=== PATIENT | male | born 1945 | race African-American/Black ===

== ENCOUNTER 2020-09-18 14:39 | Inpatient (IN) | payer MEDICARE, MEDICAID ==
[~2020-09-18] VITALS: Ht 182.9 cm; Wt 88.5 kg
--- NOTE | 2020-09-18 15:31 | EKG ---
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
--- NOTE | 2020-09-18 16:03 | RAD ---
EXAM: XR CHEST 1V 09/18/2020 2:42 PM CLINICAL INDICATION: Shortness of breath COMPARISON: 01/23/2020 TECHNIQUE: AP upright view the chest FINDINGS: The heart and mediastinum are normal. Lungs are hypoexpanded. Unchanged mild left basilar opacities and possible small left pleural effusion. Pulmonary vasculature remains indistinct. CUSTOMER ACCOUNT TECHNICIAN cath eter shunt tubing is seen in the right hemithorax. No acute osseous abnormality. IMPRESSION: Unchanged appearance of the chest with mild pulmonary vascular congestion and mild left b asilar opacities versus small pleural effusion. Electronically signed by: Kendra Vela MD (09/18/2020 4:00 PM) [id number]
[2020-09-18 16:05] LABS: CALCIUM 9.6 mg/dL (8.5-10.1); CREATININE 1.6 mg/dL (0.7-1.3); GFR 42.2; POTASSIUM 4.3 mmol/L (3.5-5.1)
[2020-09-18] MEDS ORDERED: DEXAMETHASONE SOD PHOS 10 MG/ML VIAL. ONE (16:09)
[2020-09-18 16:15] LABS: ALBUMIN 3.1 g/dL (3.4-5.0); ALBUMIN/GLOBULIN RATIO 0.6 (1.0-1.7); C REACTIVE PROTEIN 95.8 mg/L (0-3.3); TOTAL BILIRUBIN 0.4 mg/dL (0.2-1.0); TOTAL PROTEIN 8.3 g/dL (6.4-8.2)
[2020-09-18 16:20] LABS: BACTERIA,URINE MANY /HPF (0-FEW); BILIRUBIN,URINE NEG (NEG); CLARITY,URINE TURBID; COLOR,URINE YELLOW; GLUCOSE,URINE NEG (NEG); NITRITE,URINE NEG (NEG); RBC,URINE >40 /HPF (0-2); SQUAMOUS EPITHELIAL CELL,UR MOD /LPF; WBC,URINE >40 /HPF (0-4)
[2020-09-18 16:21] LABS: GRANULAR CASTS,URINE MOD /HPF
[2020-09-18 16:25] LABS: BASO # 0.1 x10^3/uL (0.0-0.2); BASO % 1 % (0-3); EOS % 0 % (0-3); HEMATOCRIT 44.7 % (39.0-53.0); HEMOGLOBIN 14.1 g/dL (13.0-17.5); LYMPH # 2.7 x10^3/uL (1.0-4.8); LYMPH % 30 % (24-48); MEAN CORPUSCULAR HEMOGLOBIN 26 pg (25-35); MEAN CORPUSCULAR HGB CONC 31 g/dL (31-37); MEAN CORPUSCULAR VOLUME 82 fL (79-100); MONO # 0.6 x10^3/uL (0.0-1.1); MONO % 6 % (0-9); NEUT # 5.8 x10^3uL (1.8-7.7); NEUT % 63 % (31-73); PLATELET COUNT 212 x10^3/uL (140-400); RED BLOOD COUNT 5.48 x10^6/uL (4.30-5.70); RED CELL DISTRIBUTION WIDTH 18.5 % (11.5-14.5); WHITE BLOOD COUNT 9.2 x10^3/uL (4.0-11.0)
[2020-09-18] MEDS ORDERED: IV NORMAL SALINE 50ML 50 ML ONE (16:28)
[2020-09-18] MEDS ORDERED: cefTRIAXone SODIUM 1 GM VIAL ONE (16:28)
[2020-09-18] MEDS ORDERED: DEXAMETHASONE SOD PHOS 10 MG/ML VIAL. IV ONE (16:30)
[2020-09-18] MEDS ORDERED: IV NORMAL SALINE 1,000ML 1,000 ML IV ONE (16:30)
--- NOTE | 2020-09-18 16:38 | PHYS DOC ---
Past History Past Medical History: Anemia, Anxiety, Dementia, Depression, Diabetes, Hypertension, Hypothyroid, Pneumonia, Other Additional Past Medical Histor: BENIGN NEOPLASM OF BRAIN; COVID POSITIVE 09-09-20 Past Surgical History: Other Additional Past Surgical Histo: UNKNOWN Alcohol Use: None Additional Alcohol Information: UNKNOWN HISTORY Adult General Chief Complaint Chief Complaint: SHORTNESS OF BREATH HPI HPI Patient is 75-year-old male who presents to the emergency room with reported increased lethargy and work of breathing. Patient is unable to provide any kind of history at this time. He does reportedly have a history of dementia which is likely the cause of this. Patient is alert and oriented. He tested positive for coronavirus 8 days ago. Review of Systems Review of Systems Unable to obtain due to dementia Current Medications Current Medications Current Medications Medications (Trade) Dose Ordered Sig/Danis Start Time Stop Time Status Last Admin Dose Admin Ceftriaxone Sodium 1 gm/ Sodium Chloride 50 ml @ 100 mls/hr 1X ONCE 09/18/20 16:30 09/18/20 16:59 Ceftriaxone Sodium (Rocephin) 1 gm STK-MED ONCE 09/18/20 16:28 09/18/20 16:28 DC Dexamethasone Sodium Phosphate (Decadron) 10 mg 1X ONCE 09/18/20 16:30 09/18/20 16:31 09/18/20 16:20 10 MG Sodium Chloride 50 ml @ As Directed STK-MED ONCE 09/18/20 16:28 09/18/20 16:28 DC Allergies Allergies Allergies Coded Allergies Type Severity Reaction Last Updated Verified No Known Drug Allergies 09/18/20 No Physical Exam Physical Exam General: Awake, alert, NAD. Well Nourished, well hydrated. Cooperative HEENT: Atraumatic, EOMI, PERRL, airway patent, moist oral mucosa Neck: Supple, trachea midline Respiratory: Normal effort, no tachypnea, decreased breath sounds bilaterally CV: RRR, no murmur, cap refill <2 GI: Soft, nondistended, nontender, no masses MSK: No obvious deformities Skin: Warm, dry, intact Neuro: Nonverbal, sensory and motor grossly intact, no focal deficits Current Patient Data Vital Signs Vital Signs Date Time Temp Pulse Resp B/P (MAP) Pulse Ox O2 Delivery O2 Flow Rate FiO2 09/18/20 16:18 80 20 129/73 (91) 99 Nasal Cannula 3.0 09/18/20 14:52 99.1 Lab Results Laboratory Tests Test 09/18/20 15:20 09/18/20 15:30 White Blood Count 9.2 x10^3/uL (4.0-11.0) Red Blood Count 5.48 x10^6/uL (4.30-5.70) Hemoglobin 14.1 g/dL (13.0-17.5) Hematocrit 44.7 % (39.0-53.0) Mean Corpuscular Volume 82 fL (79-100) Mean Corpuscular Hemoglobin 26 pg (25-35) Mean Corpuscular Hemoglobin Concent 31 g/dL (31-37) Red Cell Distribution Width 18.5 % (11.5-14.5) H Platelet Count 212 x10^3/uL (140-400) Neutrophils (%) (Auto) 63 % (31-73) Lymphocytes (%) (Auto) 30 % (24-48) Monocytes (%) (Auto) 6 % (0-9) Eosinophils (%) (Auto) 0 % (0-3) Basophils (%) (Auto) 1 % (0-3) Neutrophils # (Auto) 5.8 x10^3uL (1.8-7.7) Lymphocytes # (Auto) 2.7 x10^3/uL (1.0-4.8) Monocytes # (Auto) 0.6 x10^3/uL (0.0-1.1) Eosinophils # (Auto) 0.0 x10^3/uL (0.0-0.7) Basophils # (Auto) 0.1 x10^3/uL (0.0-0.2) Sodium Level 149 mmol/L (136-145) H Potassium Level 4.3 mmol/L (3.5-5.1) Chloride Level 114 mmol/L (98-107) H Carbon Dioxide Level 25 mmol/L (21-32) Anion Gap 10 (6-14) Blood Urea Nitrogen 63 mg/dL (8-26) H Creatinine 1.6 mg/dL (0.7-1.3) H Estimated GFR (Cockcroft-Gault) 42.2 BUN/Creatinine Ratio 39 (6-20) H Glucose Level 159 mg/dL (70-99) H Calcium Level 9.6 mg/dL (8.5-10.1) Total Bilirubin 0.4 mg/dL (0.2-1.0) Aspartate Amino Transferase (AST) 38 U/L (15-37) H Alanine Aminotransferase (ALT) 52 U/L (16-63) Alkaline Phosphatase 106 U/L (46-116) Lactate Dehydrogenase 226 U/L (85-227) Creatine Kinase 49 U/L (39-308) Troponin I Quantitative < 0.017 ng/mL (0-0.055) C-Reactive Protein 95.8 mg/L (0-3.3) H TA-Syv-N-Type Natriuretic Peptide 294 pg/mL (0-449) Total Protein 8.3 g/dL (6.4-8.2) H Albumin 3.1 g/dL (3.4-5.0) L Albumin/Globulin Ratio 0.6 (1.0-1.7) L Urine Collection Type U cath Urine Color Yellow Urine Clarity Turbid Urine pH 5.5 Urine Specific Gray 1.025 Urine Protein >100 mg/dl (NEG-TRACE) Urine Glucose (UA) Neg mg/dL (NEG) Urine Ketones (Stick) Trace mg/dL (NEG) Urine Blood Large (NEG) Urine Nitrite Neg (NEG) Urine Bilirubin Neg (NEG) Urine Urobilinogen Dipstick 1.0 mg/dL (0.2 mg/dL) Urine Leukocyte Esterase Trace (NEG) Urine RBC >40 /HPF (0-2) Urine WBC >40 /HPF (0-4) Urine Squamous Epithelial Cells Mod /LPF Urine Transitional Epithelial Cells Many /LPF Urine Renal Epithelial Cells Mod /LPF Urine Bacteria Many /HPF (0-FEW) Urine Granular Casts Mod /HPF Urine Mucus Slight /LPF EKG EKG [] Radiology/Procedures Radiology/Procedures [] Heart Score Risk Factors: Risk Factors: DM, Current or recent (<one month) smoker, HTN, HLP, family history of CAD, obesity. Risk Scores: Risk Factors: DM, Current or recent (<one month) smoker, HTN, HLP, family history of CAD, obesity. Course & Med Decision Making Course & Med Decision Making Pertinent Labs and Imaging studies reviewed. (See chart for details) Patient is 75-year-old male who presents to the emergency room with known schultz virus 19. He reportedly is here in the emergency room because he had decreased breath sounds. Patient is requiring 2 L of oxygen for minimal relief of shortness of breath. He is not in respiratory distress. He is unable to provide us any kind of history. Is unclear what his baseline is. He does reportedly have severe dementia. Work-up was ordered to evaluate for endorgan damage. Patient does appear to be significantly dehydrated here in the emergency room and IV fluids will be started. Patient discussed with Dr Nelson who will assume care. Dragon Disclaimer Dragon Disclaimer This electronic medical record was generated, in whole or in part, using a voice recognition dictation system. Departure Departure: Impression: Primary Impression: COVID-19 Additional Impressions: Dehydration Hypernatremia Disposition: ADMITTED INPT THIS HOSP Condition: STABLE Referrals: ELI LEIVA MD (PCP) Problem Qualifiers NAOMI FERMIN MD Sep 18, 2020 16:38
--- NOTE | 2020-09-18 19:30 | NUR ---
Pt admitted to 123 via EMS accompanied by ER staff. Pt was transferred from [facility] to bed w/ assistance of staff. Pt was unable to verbalize past medical history. Pt responds to name by opening eyes. Pt answers questions w/ shaking head yes or no only. Bed alarm placed will continue to monitor.
[2020-09-18 19:52] VITALS: BP 127/77
[2020-09-18 22:59] VITALS: BP 125/76
[2020-09-19] MEDS ORDERED: POLY17PO5 PO (00:04)
[2020-09-19] MEDS ORDERED: FERR325T14 PO (00:04)
[2020-09-19] MEDS ORDERED: MULT-505 PO (00:04)
[2020-09-19] MEDS ORDERED: ASPI325T8 PO (00:04)
[2020-09-19] MEDS ORDERED: METF500T16 PO (00:04)
[2020-09-19] MEDS ORDERED: MAGN400O7 PO (00:04)
[2020-09-19] MEDS ORDERED: ONDA4TAB7 PO (00:04)
[2020-09-19] MEDS ORDERED: LEVO88TA4 PO (00:04)
[2020-09-19] MEDS ORDERED: ZINC220T3 PO (00:04)
[2020-09-19] MEDS ORDERED: ASCO500C PO (00:04)
[2020-09-19] MEDS ORDERED: BUSP5TAB PO (00:04)
[2020-09-19] MEDS ORDERED: CHOL500021 PO (00:04)
[2020-09-19] MEDS ORDERED: CYAN50008 PO (00:04)
[2020-09-19] MEDS ORDERED: ACET325T21 PO (00:04)
[2020-09-19] MEDS ORDERED: SERT50TA PO (00:04)
[2020-09-19] MEDS ORDERED: LACT1CAP6 PO (00:04)
[2020-09-19] MEDS ORDERED: AMLO-186 PO (00:04)
[2020-09-19] MEDS ORDERED: METF10007 PO (00:04)
[2020-09-19] MEDS ORDERED: VITA1TAB19 PO (00:04)
[2020-09-19] MEDS: IV NORMAL SALINE 1,000ML 1,000 ML IV SCH ×3 (00:21→13:30)
[2020-09-19 06:13] VITALS: BP 131/80
[2020-09-19 10:14] VITALS: BP 138/74
[2020-09-19 14:52] VITALS: BP 124/72
[2020-09-19] MEDS ORDERED: MAGNESIUM HYDROXIDE 2,400 MG/30 ML ORAL.SUSP. PO PRN (15:30)
[2020-09-19] MEDS ORDERED: ACETAMINOPHEN 325 MG TABLET PO PRN (15:30)
[2020-09-19] MEDS: IV DEXTROSE 5% 1,000 ML IV SCH (15:30)
[2020-09-19] MEDS ORDERED: DEXTROSE 50% 25 GM / 50ML DISP.SYRIN. IV PRN (15:30)
[2020-09-19] MEDS ORDERED: ONDANSETRON ODT 4 MG TAB.RAPDIS PO PRN (16:00)
[2020-09-19 16:15] LABS: CALCIUM 9.3 mg/dL (8.5-10.1); CREATININE 1.7 mg/dL (0.7-1.3); GFR 47.7; POTASSIUM 4.6 mmol/L (3.5-5.1)
[2020-09-19 16:20] LABS: ALBUMIN 2.8 g/dL (3.4-5.0); ALBUMIN/GLOBULIN RATIO 0.6 (1.0-1.7); TOTAL BILIRUBIN 0.3 mg/dL (0.2-1.0); TOTAL PROTEIN 7.5 g/dL (6.4-8.2)
[2020-09-19] MEDS: DEXAMETHASONE SOD PHOS 4 MG/ML VIAL. IVP SCH (16:24)
[2020-09-19] MEDS: INSULIN LISPRO 300 UNITS/3 ML VIAL. SQ SCH (16:38)
--- NOTE | 2020-09-19 16:47 | HP ---
ADMIT DATE: 09/18/2020 HISTORY OF PRESENT ILLNESS: The patient is a 75-year-old -[place] male patient, a resident at [facility], who was brought to the Emergency Room with complaint o4f shortness of breath. He apparently was increasingly lethargic and short of breath. The patient himself is unable to provide any history. He does reportedly have a history of dementia. By the time he arrived to the Emergency Room, he was awake, alert. He apparently tested positive for coronavirus 8 days prior to admission. He was extensively investigated in the Emergency Room including lab work and imaging studies. His chest x-ray showed that the heart and mediastinum are normal. Lungs are hyperexpanded. Unchanged mild left basilar opacities and possible small left pleural effusion; however, pulmonary vasculature remains interesting. He has a ventriculoperitoneal shunt tubing is seen in the right hemithorax. No acute osseous abnormality. His CBC showed a normal white cell count, hemoglobin, hematocrit and platelets. His chemistry however showed hypernatremia and dehydration. His D-dimer was slightly elevated at 0.88. Urinalysis showed the urine was yellow, turbid with a pH of 5.5, specific gravity of 1.025. There is large amount of protein, large amount of blood, trace of leukocyte esterase, more than 40 wbc's, more than 40 rbc's, and many bacteria. The patient was admitted with COVID-19, dehydration, hypernatremia. PAST MEDICAL HISTORY: Significant for benign neoplasm of the brain, major depressive disorder, dementia without behavioral disturbances, has conjunctivitis, hypothyroidism, hypertension, generalized muscle weakness. He is also known to have anxiety disorder, anemia, type 2 diabetes mellitus and was diagnosed with COVID-19 about 8 days prior to admission. PAST SURGICAL HISTORY: Unremarkable and unobtainable, the patient is very demented. FAMILY HISTORY: Unobtainable. SOCIAL HISTORY: He is a resident at [facility]. He apparently does not smoke, drink alcohol or use any recreational drugs. ALLERGIES: He has no known drug allergies. MEDICATIONS: He is currently on following medications: He is on ferrous sulfate 325 mg daily, amlodipine 5 mg once a day, aspirin 325 mg once a day, Tylenol 650 mg every 4 hours, sertraline 50 mg daily, buspirone 5 mg twice a day, zinc sulfate 220 mg daily, lactobacillus acidophilus 1 capsule daily, milk of magnesia 30 mL p.o. daily p.r.n. for constipation, polyethylene glycol 17 grams daily, ondansetron 4 mg every 6 hours, metformin 1000 mg daily with supper metformin ____ tablet daily. He is on levothyroxine 88 mcg, cyanocobalamin 5000 mcg once a day, vitamin B complex 1 tablet once a day, ascorbic acid 500 mg once a day, cholecalciferol 50,000 units once a week, and multivitamin 1 tablet once a day. REVIEW OF SYSTEMS: Unobtainable. PHYSICAL EXAMINATION: GENERAL: On arrival to the Emergency Room, the patient looked well and was clearly in no apparent respiratory distress. No pallor, jaundice, cyanosis or thyromegaly. No jugular venous distention. No lower limb edema. VITAL SIGNS: His heart rate was 77, blood pressure was 137/74, temperature was 99.1, respiratory rate 20, and oxygen saturation was 100% on 4 liters of oxygen. HEAD, EYES, EARS, NOSE AND THROAT: Showed normocephalic, atraumatic. NECK: Supple. HEART: Showed normal first and second heart sounds. No gallop or murmur. CHEST: Clear to auscultation. No crepitation or rhonchi. ABDOMEN: Slightly distended, soft, nontender. No guarding or rigidity. No organomegaly. All hernial orifices intact. Bowel sounds normal. NEUROLOGIC: He is demented, but without any obvious lateralizing sign. He apparently is mostly wheelchair bound. LABORATORY DATA: His lab work on arrival showed a white cell count of 9200, hemoglobin was 14, hematocrit 44, MCV 82 and platelet count of 212,000 with normal manual differential. His chemistry showed a serum sodium 149, potassium 4.3, chloride 114, bicarbonate 25, anion gap of 10, BUN 63, creatinine 1.6. Estimated GFR was 42 mL per minute. His glucose 159, calcium was 9.6. Total bilirubin, AST, ALT, alkaline phosphatase were normal. Lactate dehydrogenase was 226. CK was only 49. C-reactive protein was high at 95.8. Beta natriuretic peptide was 294. Total protein was 8.3, albumin was 3.1. His D-dimer was 0.88. His urinalysis showed the urine was yellow, turbid with a pH of 5.5, specific gravity of 1.025 with large amount of protein. The urine was negative for glucose, trace of ketones, large amount of blood, negative for nitrite, trace amount of leukocyte esterase. There is more than 40 wbc's, more than 40 rbc's, many bacteria. ASSESSMENT AND PLAN: In summary, this is a 75-year-old -[place] male patient, a resident at [facility], who was admitted with altered mental status and worsening shortness of breath. He was found to be dehydrated. He also is positive for COVID-19 about 8 days prior to admission. He has marked hypernatremia, dehydration. He has multiple other medical problems including depression, anxiety, anemia, type 2 diabetes, hypertension, hypothyroidism. The patient was admitted and was started on ceftriaxone for possible urinary tract infection and started also on dexamethasone. We will resume all his medication and monitor his lab work and decide the further management accordingly. EAN COTE MD DR: BÁRBARA/jt JOB#: [id number] / [id number]
--- NOTE | 2020-09-19 18:06 | NUR ---
PATIENT WAS CALM MOST OF THE SHIFT, A/O X 1, DENIED ANY PAIN, DENIED N/V, STATED HE IS THIRSTY, THIS RN LET THE PATIENT HAVE NECTAR THICK JUICE AND PUDDING, PATIENT WAS ABLE TO SWALLOW WITHOUT DIFFICULTIES. PATIENT HAS MISSING TEETH , NO DENTURES PRESENT IN A ROOM WITH A PATIENT.
[2020-09-19 19:50] VITALS: BP 141/73
[2020-09-19] MEDS: LACTOBACILLUS RHAMNOSUS GG 1 CAPSULE. PO SCH (20:27)
[2020-09-19] MEDS: busPIRone 5 MG TABLET. PO SCH (20:27)
--- NOTE | 2020-09-19 20:43 | PN ---
DATE: 09/19/2020 SUBJECTIVE: The patient is resting, slightly propped up in bed, in no apparent distress, awake, alert, responds appropriately. The nursing staff stated that he was very lethargic this morning, but was more awake this afternoon, he is maintaining his oxygen saturation at 95% on 2 liters of oxygen. OBJECTIVE: GENERAL: When I examined him this afternoon, he looked well and was clearly in no apparent respiratory distress. No pallor, jaundice, cyanosis or thyromegaly. No jugular venous distention. No limb edema. VITAL SIGNS: His heart rate was 80, blood pressure was 138/84, temperature was 99.1, respiratory rate was 22 and oxygen saturation was 98% on 2 liters of oxygen. The rest of clinical exam is stable. HEENT: Normocephalic, atraumatic. NECK: Supple. HEART: Showed normal first and second heart sounds. No gallop, rub or murmur. CHEST: Clear to auscultation. No crepitation or rhonchi. ABDOMEN: Soft, nontender. NEUROLOGIC: He is definitely more awake, alert, opens eyes, tracks and responds appropriately. All cranial nerves intact. EXTREMITIES: He moves his upper extremities to much good extent than lower extremities, apparently he is mostly bedbound. His intake and output are incompletely recorded. LABORATORY DATA: Still pending at the time of this dictation. ASSESSMENT: This is a 75-year-old male patient who was admitted with worsening lethargy. He is more awake this afternoon, his oxygen saturation is 95% on 2 liters of oxygen. He is dehydrated. He has acute kidney injury and hypernatremia. He has multiple other medical problems including hypertension, hypothyroidism, type 2 diabetes, depression. PLAN: My plan is to discontinue IV normal saline. I held his metformin, start him on D5W IV at 100 mL per hour. We will continue with all his medication except metformin. We will repeat all his lab work again tomorrow. EAN COTE MD DR: BÁRBARA/jt JOB#: [id number] / [id number]
[2020-09-19 23:21] VITALS: BP 145/72
[2020-09-20] MEDS: IV DEXTROSE 5% 1,000 ML IV SCH ×3 (01:30→20:58)
[2020-09-20 05:49] LABS: ALBUMIN 2.7 g/dL (3.4-5.0); ALBUMIN/GLOBULIN RATIO 0.6 (1.0-1.7); CREATININE 1.6 mg/dL (0.7-1.3); GFR 51.1; TOTAL BILIRUBIN 0.2 mg/dL (0.2-1.0); TOTAL PROTEIN 7.4 g/dL (6.4-8.2)
[2020-09-20 05:55] LABS: HEMATOCRIT 39.7 % (39.0-53.0); HEMOGLOBIN 12.3 g/dL (13.0-17.5); RED BLOOD COUNT 4.8 x10^6/uL (4.30-5.70); RED CELL DISTRIBUTION WIDTH 18.4 % (11.5-14.5)
[2020-09-20 06:01] VITALS: BP 141/71
[2020-09-20 07:12] LABS: POTASSIUM 4.4 mmol/L (3.5-5.1)
[2020-09-20] MEDS: ASPIRIN 325 MG TABLET PO SCH (08:47)
[2020-09-20] MEDS: busPIRone 5 MG TABLET. PO SCH ×2 (08:47→20:59)
[2020-09-20] MEDS: ZINC SULFATE 220 MG CAPSULE. PO SCH (08:47)
[2020-09-20] MEDS: SERTRALINE 50 MG TABLET. PO SCH (08:47)
[2020-09-20] MEDS: LACTOBACILLUS RHAMNOSUS GG 1 CAPSULE. PO SCH ×2 (08:47→20:59)
[2020-09-20] MEDS: MULTIVITAMIN with MINERAL TABLET. PO SCH (08:47)
[2020-09-20] MEDS: LEVOTHYROXINE 88 MCG TABLET PO SCH (08:47)
[2020-09-20] MEDS: FERROUS SULFATE 325 MG TABLET. PO SCH (08:47)
[2020-09-20] MEDS: ASCORBIC ACID 500 MG TABLET PO SCH (08:47)
[2020-09-20] MEDS: VITAMIN B COMPLEX CAPSULE. PO SCH (08:47)
[2020-09-20] MEDS: DEXAMETHASONE SOD PHOS 4 MG/ML VIAL. IVP SCH (08:48)
--- NOTE | 2020-09-20 08:53 | NUR ---
Wound/Ostomy Care Wound Type/Assessment: Wound consult for wound to coccyx. Pt has stage III pressure ulcer to coccyx and left buttock has open peeling area as well. Pt also has DTI to right posterior heel. Treatment Recommendations/Plan: Applied calazime to coccyx as pt is incontinent, recommend to reapply BID and PRN. Dressed right heel with skin prep and foam, recommend to change every 3 days. Education provided: Pt educated on PU prevention, will need reinforcement due to mental status. Discussed POC with SRINATH Silver and Jaclyn ROSENBERG. Offloading surface/device: RN will order purple wedge today and P500 bed if pt is going to remain inpatient for another 24 hours. Discussed with field supervisor seed production as well. Float heels and TQ2H. Recommended Referrals/Tests: na Discharge Recommendations for dressings: continue as above noted.
[2020-09-20] MEDS: INSULIN LISPRO 300 UNITS/3 ML VIAL. SQ SCH ×4 (08:56→21:08)
[2020-09-20] MEDS ORDERED: CYANOCOBALAMIN (VITAMIN B-12) 1,000 MCG TABLET. PO SCH (09:00)
[2020-09-20] MEDS: amLODIPine BESYLATE 5 MG TABLET PO SCH (09:00)
[2020-09-20] MEDS: POLYETHYLENE GLYCOL 3350 17 GM PACKET. PO SCH (09:00)
--- NOTE | 2020-09-20 09:27 | NUR ---
PATIENT IS CALM AND COOPERATIVE THIS AM UPON ASSESSMENT AND MED ADMINISTRATION, CONFUSED AND NEED TO BE ENCOURAGED TO TAKE MEDICATIONS, DID NOT TAKE MIRALAX, REFUSING TO DRINK IT, TURNING HIS HEAD AWAY, PILLS WERE CRUSHED IN APPLESAUCE, PATIENT TOOK A COUPLE OF BITES WITH ENCOURAGEMENT. FOAM WEDGE ORDERED, CONTINUE Q2 TURNS WITH WEDGE TO DECREASE PRESSURE OFF THE COCCYX AND PROMOTE HEALING.
[2020-09-20 10:13] VITALS: BP 138/60
[2020-09-20 15:12] VITALS: BP 124/75
[2020-09-20] MEDS ORDERED: DEXTROSE 50% 25 GM / 50ML DISP.SYRIN. IV PRN (15:30)
[2020-09-20 19:54] VITALS: BP 129/58
[2020-09-20] MEDS: HEPARIN for SUB-Q USE 5,000 UNIT/ML VIAL. SQ SCH (21:06)
--- NOTE | 2020-09-20 21:53 | PN ---
DATE: SUBJECTIVE: The patient is resting flat, comfortably in bed, in no apparent respiratory distress. He is awake, alert, responds appropriately. Questioning him, he denied any complaint. The nursing staff stated that he has been lethargic and his level of consciousness waxes and wanes. PHYSICAL EXAMINATION: GENERAL: When I saw him this afternoon, he looked pale, but no jaundice, cyanosis or thyromegaly. No jugular venous distention. No lower limb edema. VITAL SIGNS: His heart rate was 48, blood pressure was 124/75, temperature 97.1, respiratory rate 20, and oxygen saturation was 97% on 1 liter of oxygen. HEENT: Showed normocephalic, atraumatic. NECK: Supple. HEART: Showed normal first and second heart sounds. No gallop, rub or murmur. CHEST: Clear to auscultation. No crepitation or rhonchi. ABDOMEN: Distended, soft, nontender. NEUROLOGIC: He was actually when I saw him was awake, alert, responding appropriately. All cranial nerves are intact. He moves upper extremities to much greater than lower extremities, mostly bedbound. His intake over the last 24 hours and output were incompletely recorded. LABORATORY DATA: His lab work as of this morning showed a white cell count 7000, hemoglobin 12, hematocrit 39, MCV 83, and platelet count 201,000. His chemistry showed a serum sodium of 155, potassium 4.4, chloride 119, bicarbonate 28, anion gap of 8, BUN of 55, creatinine 1.6, estimated GFR was 51 mL per minute. His glucose was 225. Calcium was 9. Total bilirubin and alkaline phosphatase normal. AST, ALT slightly elevated. Total protein 7.4, albumin 2.7. His D-dimer was high at 0.88. Urinalysis showed that there is large amount of white cell count. ASSESSMENT: 1. Altered mental status, improving. 2. Acute hypoxic respiratory failure. His oxygen requirement is actually improving. 3. Acute kidney injury, slightly improving. 4. Hypernatremia, again slowly improving. 5. The patient has multiple other medical problems including: A. Hypertension. B. Hypothyroidism. C. Type 2 diabetes mellitus. D. Depression. PLAN: My plan is to continue with the IV fluid in the form of D5W that increase to 150 mL per hour. Continue with all his other medications. Continue with dexamethasone. Continue with ceftriaxone. I will repeat his lab work again tomorrow. I will increase also his sliding scale to higher level and if the patient continued to worsen, we might have to consider hospice care. EAN COTE MD DR: BÁRBARA/jt JOB#: [id number] / [id number]
[2020-09-20 23:18] VITALS: BP 148/72
[2020-09-21] MEDS: IV DEXTROSE 5% 1,000 ML IV SCH ×3 (03:08→15:53)
--- NOTE | 2020-09-21 03:16 | NUR ---
Nursing note: Pt rested comfortably in bed through shift, q2 turns per orders. Pt heart rate low 40's. 1L o2, working to titrate down.
--- NOTE | 2020-09-21 05:23 | NUR ---
Nursing note: MD aware of bradycardia. Titrated off O2, satting at 97% RA. No new orders.
[2020-09-21] MEDS: HEPARIN for SUB-Q USE 5,000 UNIT/ML VIAL. SQ SCH ×3 (05:34→21:34)
[2020-09-21 05:55] VITALS: BP 158/69
[2020-09-21] MEDS: FERROUS SULFATE 325 MG TABLET. PO SCH (08:47)
[2020-09-21] MEDS: LACTOBACILLUS RHAMNOSUS GG 1 CAPSULE. PO SCH ×2 (08:47→21:34)
[2020-09-21] MEDS: ASPIRIN 325 MG TABLET PO SCH (08:47)
[2020-09-21] MEDS: LEVOTHYROXINE 88 MCG TABLET PO SCH (08:47)
[2020-09-21] MEDS: SERTRALINE 50 MG TABLET. PO SCH (08:47)
[2020-09-21] MEDS: ZINC SULFATE 220 MG CAPSULE. PO SCH (08:47)
[2020-09-21] MEDS: VITAMIN B COMPLEX CAPSULE. PO SCH (08:47)
[2020-09-21] MEDS: MULTIVITAMIN with MINERAL TABLET. PO SCH (08:47)
[2020-09-21] MEDS: busPIRone 5 MG TABLET. PO SCH ×2 (08:47→21:34)
[2020-09-21] MEDS: DEXAMETHASONE SOD PHOS 4 MG/ML VIAL. IVP SCH (08:48)
[2020-09-21] MEDS: amLODIPine BESYLATE 5 MG TABLET PO SCH (08:48)
[2020-09-21] MEDS: POLYETHYLENE GLYCOL 3350 17 GM PACKET. PO SCH (08:48)
[2020-09-21] MEDS: ASCORBIC ACID 500 MG TABLET PO SCH (08:48)
[2020-09-21] MEDS: INSULIN LISPRO 300 UNITS/3 ML VIAL. SQ SCH ×4 (08:50→21:35)
[2020-09-21 09:26] LABS: HEMATOCRIT 37.7 % (39.0-53.0); HEMOGLOBIN 11.5 g/dL (13.0-17.5); RED BLOOD COUNT 4.54 x10^6/uL (4.30-5.70); WHITE BLOOD COUNT 6.3 x10^3/uL (4.0-11.0)
[2020-09-21 09:37] LABS: ALBUMIN 2.5 g/dL (3.4-5.0); ALBUMIN/GLOBULIN RATIO 0.6 (1.0-1.7); CREATININE 1.3 mg/dL (0.7-1.3); GFR 64.9; POTASSIUM 4.3 mmol/L (3.5-5.1); TOTAL BILIRUBIN 0.4 mg/dL (0.2-1.0); TOTAL PROTEIN 6.7 g/dL (6.4-8.2)
[2020-09-21 10:48] VITALS: BP 115/68
[2020-09-21 14:18] VITALS: BP 120/60
--- NOTE | 2020-09-21 19:30 | NUR ---
Notified MD about clarification of Dobutamine gtt, and MD does not want to start it at this time d/t pt's BP being ok and pt is not symptomatic. Will continue to monitor.
--- NOTE | 2020-09-21 19:35 | NUR ---
Pt complained of chest pain. After receiving orders from MD pt states, "I don't have chest pain. I don't tell the truth all of the time." Call light at bed side. Will continue to monitor.
[2020-09-21 19:44] VITALS: BP 117/57
[2020-09-21 23:12] VITALS: BP 135/68
--- NOTE | 2020-09-21 23:16 | PN ---
DATE: 09/21/2020 SUBJECTIVE: The patient is resting, slightly propped up in bed, awake, alert, responding appropriately. On questioning him, he denied any complaint. The nursing staff said he continued to be anorectic and his intake is poor. He is now on room air, maintaining his oxygen saturation at 96%. The patient does have episodes of bradycardia, apparently his heart rate dropped down to mid 40s during which the patient is asymptomatic. PHYSICAL EXAMINATION: GENERAL: When I examined him this afternoon, he looked well and was clearly in no apparent respiratory distress, pale, no jaundice, cyanosis or thyromegaly. No jugular venous distention or limb edema. VITAL SIGNS: His heart rate was 50, blood pressure was 120/60, temperature 98.1, respiratory rate was 20, and oxygen saturation was 97% on room air. HEAD, EYES, EARS, NOSE AND THROAT: Showed normocephalic, atraumatic. NECK: Supple. CARDIAC: Normal first and second heart sounds. No gallop, rub or murmur. CHEST: Clear to auscultation. No crepitation or rhonchi. ABDOMEN: Distended, soft, nontender. NEUROLOGIC: He is more awake, alert, responding appropriately. All cranial nerves are intact. He moves extremities without difficulty, though he is mostly bedbound. His intake over the last 24 hours was 118 output was recorded. LABORATORY DATA: As of this morning, his white cell count was 6300, hemoglobin 11.5, hematocrit 37.7, MCV 83 and platelet count 175,000. His chemistry showed a serum sodium 146, potassium 4.3, chloride 111, bicarbonate 29, anion gap of 6, BUN 35, creatinine 1.3, estimated GFR was 64 mL per minute. His glucose was 204, calcium was 9. Total bilirubin and alkaline phosphatase is normal. AST, ALT slightly elevated. Total protein 6.7, albumin 2.5. ASSESSMENT: 1. Altered mental status, improving. 2. Acute hypoxic respiratory failure, resolved. He is now on room air, maintaining his oxygen saturation at 97%. 3. Acute kidney injury, slightly improving. 4. Hypernatremia, again slowly improving. 5. The patient has multiple other medical problems including: A. Hypertension. B. Hypothyroidism. C. Type 2 diabetes mellitus. D. Depression. PLAN: To continue with IV fluid in the form of D5W, continue with all other medication. Continue with IV ceftriaxone, continue to monitor his blood sugar and adjust insulin as needed. EAN COTE MD DR: BÁRBARA/jt JOB#: [id number] / [id number]
[2020-09-22] VITALS (22 sets, daily range): BP systolic 93–167; BP diastolic 53–97
[2020-09-22] MEDS: IV DEXTROSE 5% 1,000 ML IV SCH ×2 (00:20→06:22)
[2020-09-22 04:22] LABS: CALCIUM 8.3 mg/dL (8.5-10.1); GFR 87.9; POTASSIUM 3.6 mmol/L (3.5-5.1)
[2020-09-22] MEDS: HEPARIN for SUB-Q USE 5,000 UNIT/ML VIAL. SQ SCH ×3 (06:27→21:18)
--- NOTE | 2020-09-22 07:52 | EKG ---
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
[2020-09-22] MEDS: MULTIVITAMIN with MINERAL TABLET. PO SCH (08:17)
[2020-09-22] MEDS: amLODIPine BESYLATE 5 MG TABLET PO SCH (08:17)
[2020-09-22] MEDS: POLYETHYLENE GLYCOL 3350 17 GM PACKET. PO SCH (08:17)
[2020-09-22] MEDS: ASCORBIC ACID 500 MG TABLET PO SCH (08:17)
[2020-09-22] MEDS: LEVOTHYROXINE 88 MCG TABLET PO SCH (08:17)
[2020-09-22] MEDS: ASPIRIN 325 MG TABLET PO SCH (08:17)
[2020-09-22] MEDS: LACTOBACILLUS RHAMNOSUS GG 1 CAPSULE. PO SCH ×2 (08:18→21:17)
[2020-09-22] MEDS: SERTRALINE 50 MG TABLET. PO SCH (08:18)
[2020-09-22] MEDS: busPIRone 5 MG TABLET. PO SCH ×2 (08:18→21:17)
[2020-09-22] MEDS: FERROUS SULFATE 325 MG TABLET. PO SCH (08:18)
[2020-09-22] MEDS: VITAMIN B COMPLEX CAPSULE. PO SCH (08:18)
[2020-09-22] MEDS: ZINC SULFATE 220 MG CAPSULE. PO SCH (08:18)
[2020-09-22] MEDS: DEXAMETHASONE SOD PHOS 4 MG/ML VIAL. IVP SCH (08:19)
[2020-09-22] MEDS: INSULIN LISPRO 300 UNITS/3 ML VIAL. SQ SCH ×4 (08:19→21:17)
--- NOTE | 2020-09-22 19:31 | PN ---
DATE: 09/22/2020 SUBJECTIVE: The patient is resting flat, comfortably in bed, in no apparent distress, awake, alert. In questioning him, he denied any complaint. Nursing staff did not voice any concerns that he had an uneventful night. He is on room air, maintaining his oxygen saturation at 95%. PHYSICAL EXAMINATION: GENERAL: When I examined him, he looked well and was clearly in no apparent respiratory distress. He was somewhat pale, no jaundice, cyanosis or thyromegaly. No jugular venous distention or limb edema. VITAL SIGNS: His heart is between 40s and 50s, blood pressure was 115/64, temperature was 99.2, respiratory rate was 20, and oxygen saturation was 95% on room air. HEAD, EYES, EARS, NOSE AND THROAT: Showed normocephalic, atraumatic. NECK: Supple. HEART: Showed normal first and second heart sounds. No gallop, rub or murmur. CHEST: Clear to auscultation. No crepitation or rhonchi.. ABDOMEN: Distended, soft, nontender. NEUROLOGIC: He is definitely more awake, alert, responding appropriately. All cranial nerves intact. He moves extremities without difficulty, though is mostly bedbound. His intake was 700, output was 750. LABORATORY DATA: His lab work this morning showed serum sodium is down to 137, potassium 3.6, chloride 104, bicarbonate 26, anion gap of 7, BUN 22, creatinine 1, estimated GFR was 88 mL per minute, his glucose 159, and calcium was 8.3. His white cell count was 6300, hemoglobin 11.5, hematocrit 37, MCV 83 and platelet count of 175,000. ASSESSMENT: 1. Altered mental status, likely due to hypernatremia, resolved. 2. Acute hypoxic respiratory failure, resolved. He is now on room air, maintaining oxygen saturations 95%. 3. Acute kidney injury, improved. 4. Hypernatremia, resolved. His serum sodium is down to 137. 5. The patient has multiple other medical problems including: A. Hypertension. B. Hypothyroidism. C. Type 2 diabetes mellitus. D. Depression. PLAN: Obviously to discontinue the IV fluid as his serum sodium and potassium have normalized. We will discharge him back to [facility] tomorrow. EAN COTE MD DR: BÁRBARA/jt JOB#: [id number] / [id number]
[2020-09-23] VITALS (11 sets, daily range): BP systolic 111–148; BP diastolic 63–76
[2020-09-23] MEDS: HEPARIN for SUB-Q USE 5,000 UNIT/ML VIAL. SQ SCH ×2 (05:37→14:00)
[2020-09-23 07:00] LABS: HEMATOCRIT 38.7 % (39.0-53.0); HEMOGLOBIN 11.9 g/dL (13.0-17.5); RED BLOOD COUNT 4.72 x10^6/uL (4.30-5.70); WHITE BLOOD COUNT 6.1 x10^3/uL (4.0-11.0)
[2020-09-23 07:15] LABS: CALCIUM 9.2 mg/dL (8.5-10.1); CREATININE 1.1 mg/dL (0.7-1.3); GFR 78.7; POTASSIUM 3.8 mmol/L (3.5-5.1)
[2020-09-23] MEDS: SERTRALINE 50 MG TABLET. PO SCH (08:29)
[2020-09-23] MEDS: busPIRone 5 MG TABLET. PO SCH (08:29)
[2020-09-23] MEDS: DEXAMETHASONE SOD PHOS 4 MG/ML VIAL. IVP SCH (08:29)
[2020-09-23] MEDS: amLODIPine BESYLATE 5 MG TABLET PO SCH (08:29)
[2020-09-23] MEDS: LEVOTHYROXINE 88 MCG TABLET PO SCH (08:29)
[2020-09-23] MEDS: ZINC SULFATE 220 MG CAPSULE. PO SCH (08:29)
[2020-09-23] MEDS: VITAMIN B COMPLEX CAPSULE. PO SCH (08:29)
[2020-09-23] MEDS: LACTOBACILLUS RHAMNOSUS GG 1 CAPSULE. PO SCH (08:29)
[2020-09-23] MEDS: ASCORBIC ACID 500 MG TABLET PO SCH (08:29)
[2020-09-23] MEDS: ASPIRIN 325 MG TABLET PO SCH (08:30)
[2020-09-23] MEDS: MULTIVITAMIN with MINERAL TABLET. PO SCH (08:30)
[2020-09-23] MEDS: POLYETHYLENE GLYCOL 3350 17 GM PACKET. PO SCH (08:30)
[2020-09-23] MEDS: INSULIN LISPRO 300 UNITS/3 ML VIAL. SQ SCH ×2 (08:31→13:00)
--- NOTE | 2020-09-23 11:53 | NUR ---
Discharge packet prepared, gave report to Miracle ROSENBERG at [facility]. EVELIN & Karena removed, Awaiting transportation.
--- NOTE | 2020-09-23 15:46 | NUR ---
[facility].
[2020-09-26] MEDS ORDERED: CHOLECALCIFEROL (VITAMIN D3) 50,000 UNIT CAPSULE PO SCH (09:00)
== END 2020-09-23 15:30 | DRG 177 ==
LOC: ER 14:39 → 1 SOUTH 17:15 → ICU 09-21 19:11
PROVIDERS: ADMIT Internal Medicine; ATTEND Internal Medicine
DX: U07.1 COVID-19 (principal); J96.01 Acute respiratory failure with hypoxia; G93.41 Metabolic encephalopathy; N17.0 Acute kidney failure with tubular necrosis; E87.0 Hyperosmolality and hypernatremia; D64.9 Anemia, unspecified; E03.9 Hypothyroidism, unspecified; E11.9 Type 2 diabetes mellitus without complications; E86.0 Dehydration; F03.90 Unspecified dementia, unspecified severity, without behavioral disturbance, psychotic disturbance, mood disturbance, and anxiety; F32.9 Major depressive disorder, single episode, unspecified; F41.9 Anxiety disorder, unspecified; I10 Essential (primary) hypertension; Z86.011 Personal history of benign neoplasm of the brain; Z98.2 Presence of cerebrospinal fluid drainage device; Z79.899 Other long term (current) drug therapy; Z74.01 Bed confinement status
CPT/HCPCS: 36415; 71045; 80048; 80053; 81001; 82550; 82947; 83615; 83880; 84443; 84484; 85025; 85027; 85379; 86140; 87086; 93005; J0696; J1100; J1644; J1815; P9612; 99285-25; J7030

== ENCOUNTER 2021-08-28 23:00 | Inpatient (IN) | payer MEDICARE, MEDICAID ==
[~2021-08-28] VITALS: Ht 177.8 cm; Wt 96.6 kg
[~2021-08-28 23:00] MED LIST: ACET325T21 PO; AMLO-186 PO; ASCO500C PO; ASPI325T8 PO; BUSP5TAB PO; CHOL500021 PO; CYAN50009 PO; FERR325T14 PO; LACT1CAP6 PO; LEVO88TA4 PO; MAGN400O7 PO; METF10007 PO; METF500T16 PO; MULT-505 PO; ONDA4TAB7 PO; POLY17PO5 PO; SERT50TA PO; VITA1TAB19 PO; ZINC220T3 PO
--- NOTE | 2021-08-28 23:14 | PHYS DOC ---
Past History Past Medical History: Anemia, Anxiety, Dementia, Depression, Diabetes, Hypertension, Hypothyroid, Pneumonia, Other Additional Past Medical Histor: BENIGN NEOPLASM OF BRAIN; COVID POSITIVE 09-09-20 Past Surgical History: Other Additional Past Surgical Histo: UNKNOWN Alcohol Use: None Adult General HPI HPI Patient is a 76-year-old male with a past medical history significant for advanced Alzheimer's, brain mass, insulin-dependent diabetes and recent diagnosi s of pneumonia who presents from his half-way for a chief complaint of fevers. Per half-way staff patient had fevers there greater than 102 despite being treated for his pneumonia. States he seems more tired than usual and has had a decrease in appetite. Denies any recent travels, traumas, rash, cough, nausea, vomiting, diarrhea, blood in the stool or urine. Per half-way, patient is at baseline cognition. Review of Systems Review of Systems Review of systems otherwise unremarkable except noted in HPI Allergies Allergies Allergies Coded Allergies Type Severity Reaction Last Updated Verified No Known Drug Allergies 09/18/20 No Physical Exam Physical Exam Constitutional: Well developed, well nourished, no acute distress, appears ill and diaphoretic HENT: Normocephalic, atraumatic, bilateral external ears normal, oropharynx dry, no oral exudates, nose normal. [] Eyes: conjunctiva normal, no discharge. [] Neck: Normal range of motion, no tenderness, supple, no stridor. [] Cardiovascular:Heart rate regular rhythm, no murmur [] Lungs & Thorax: Bilateral breath sounds clear to auscultation [] Abdomen: Bowel sounds normal, soft, no tenderness, no masses, no pulsatile masses. [] Skin: Warm, dry, capillary refill greater than 3 seconds Back: No tenderness, no CVA tenderness. [] Extremities: No tenderness, no cyanosis, no clubbing, ROM intact, no edema. [] Neurologic: Alert and oriented to baseline per half-way staff, normal for him motor function, normal for him sensory function, no new focal deficits n oted. [] Psychologic: Affect normal, mood normal. [] EKG EKG [] Radiology/Procedures Radiology/Procedures [] Heart Score C/O Chest Pain: No Risk Factors: Risk Factors: DM, Current or recent (<one month) smoker, HTN, HLP, family history of CAD, obesity. Risk Scores: Risk Factors: DM, Current or recent (<one month) smoker, HTN, HLP, family his tory of CAD, obesity. Course & Med Decision Making Course & Med Decision Making Patient is a 76-year-old male with multiple past medical problems who presents from his half-way for recent bout with pneumonia and fever Vital signs note notable for SIRS criteria of heart rate in the 90s. Physical exam noted above. Patient placed on monitor with IV access established. Blood cultures obtained given initial dose of antibiotics due to concern for infection/sepsis. Lab analysis notable for leukocytosis, VICKI and urinary tract infection Imaging with moderate right hydronephrosis and hydroureter with thickened ureter wall and bladder wall with no nephrolithiasis identified concerning for probable ascending infection Discussed all findings with patient and recommended admission for continued evaluation and treatment of his urinary tract infection/sepsis. Patient grateful, verbalized understanding agree with plan of admission. Dragon Disclaimer Dragon Disclaimer This electronic medical record was generated, in whole or in part, using a voice recognition dictation system. Departure Departure: Impression: Primary Impression: Sepsis Additional Impressions: Urinary tract infection Acute kidney injury Disposition: ADMITTED INPATIENT Admitting Physician: Milan Fleming Referrals: ELI LEIVA MD (PCP) Problem Qualifiers ROSY PETERS MD Aug 28, 2021 23:14
[2021-08-28] MEDS ORDERED: IV RINGERS SOLUTION,LACTATED 1,000 ML IV ONE (23:45)
[2021-08-28 23:51] LABS: BASO % 0 % (0-3); EOS % 0 % (0-3); HEMATOCRIT 39.3 % (39.0-53.0); HEMOGLOBIN 12.3 g/dL (13.0-17.5); LYMPH # 4.1 x10^3/uL (1.0-4.8); LYMPH % 18 % (24-48); MEAN CORPUSCULAR HEMOGLOBIN 26 pg (25-35); MEAN CORPUSCULAR HGB CONC 31 g/dL (31-37); MEAN CORPUSCULAR VOLUME 85 fL (79-100); MONO # 0.9 x10^3/uL (0.0-1.1); MONO % 4 % (0-9); NEUT # 17.2 x10^3uL (1.8-7.7); NEUT % 77 % (31-73); PLATELET COUNT 168 x10^3/uL (140-400); RED BLOOD COUNT 4.66 x10^6/uL (4.30-5.70); RED CELL DISTRIBUTION WIDTH 16.8 % (11.5-14.5); WHITE BLOOD COUNT 22.2 x10^3/uL (4.0-11.0)
[2021-08-28 23:55] LABS: CALCIUM 9.1 mg/dL (8.5-10.1); CREATININE 3.9 mg/dL (0.7-1.3); GFR 18.2; POTASSIUM 4.8 mmol/L (3.5-5.1)
[2021-08-29 00:01] LABS: ALBUMIN 2.7 g/dL (3.4-5.0); ALBUMIN/GLOBULIN RATIO 0.6 (1.0-1.7); TOTAL BILIRUBIN 0.4 mg/dL (0.2-1.0)
[2021-08-29] MEDS ORDERED: cefTRIAXone SODIUM 1 GM VIAL ONE (00:22)
[2021-08-29] MEDS ORDERED: IV NORMAL SALINE 50ML 50 ML ONE (00:22)
[2021-08-29 00:34] LABS: % BANDS 5 % (0-9); % LYMPHS 17 % (24-48); % MONOS 2 % (0-10); % SEGS 76 % (35-66); PLT ESTIMATE ADEQUATE (ADEQUATE)
--- NOTE | 2021-08-29 01:09 | RAD ---
CT HEAD/BRAIN WO History: Altered mental status, sepsis workup. Fever. Comparison: 01/04/2013 Technique: Noncontrast CT imaging was performed of the head. Findings: No intracranial hemorrhage. No mass effect. There is redemonstrated moderate ventriculomegaly with a right frontal ventriculoperitoneal shunt catheter with tip near the foramen of Monro. No evidence of acute territorial infarction. Imaged orbits are unremarkable. Imaged paranasal sinuses and mastoid air cells are clear. Bifrontal c raniotomy changes. Intact appearing shunt valve and tubing coursing of the right posterior neck. Impression: 1. No acute intracranial abnormality. 2. Stable appearance of moderate ventriculomegaly with right frontal approach ventriculoperitoneal s jerome. ----- Exposure: One or more of the following individualized dose reduction techniques were utilized for thi s examination: 1. Automated exposure control 2. Adjustment of the mA and/or kV according to patient size 3. Use of iterative reconstruction technique. Electronically signed by: Robert Bradley MD (08/29/2021 1:07 AM) [facility]
--- NOTE | 2021-08-29 01:21 | RAD ---
CT CHEST_ABDOMEN_ AND PELVIS WITHOUT CONTRAST History: Altered mental status, sepsis workup. History of recent pneumonia, fever. Comparison: CT abdomen and pelvis 01/23/2020 Technique: Noncontrast CT of the chest, abdomen and pelvis. Findings: Diffuse thyroid enlargement without focal lesion. No mediastinal adenopathy. The aorta is normal joelle john with mild calcification. Normal heart size is heavy coronary artery calcification. No pericardial effusion. The esophagus is unremarkable. Expiratory appearance of the lungs. Suggestion of dependent debris of the upper thoracic trachea. Irr egular atelectatic scarring in the right upper lobe with approximately 6 mm nodule (axial 17). Left-s ided volume loss with elevation of the diaphragm and lingular and left lower lobe consolidations. No pleural effusion or pneumothorax. The liver is unremarkable. The gallbladder is mostly decompressed. Mild pancreatic atrophy. The splee n is enlarged measuring 14.7 cm AP, similar to comparison. Adrenals are within normal limits. There is moderate right hydronephrosis and proximal hydroureter with suggestion of ureteral wall thic kening. No ureterolithiasis is identified. This is new from comparison. Right renal perinephric fat s tranding. Cyst at the anterior hilar lip right kidney; upper pole and posterior cortex left kidney. T he bladder is decompressed with thickened wall. The uterus is absent. The stomach is decompressed. The small bowel is nondistended. Normal appendix. Gas-filled colon with mild stool burden. No pericolonic inflammatory changes. No abdominal pelvic adenopathy. Aortoiliac ca lcification. No aneurysm. Anterior chest ventriculoperitoneal shunt catheter coils within the anterio r right abdomen. Diffusely decreased osseous mineralization. Degenerative changes of the spine and hi ps. Impression: 1. Moderate right hydronephrosis and hydroureter with thickened ureteral wall and bladder wall. No n ephrolithiasis identified. This is concerning for possible ascending infection. 2. Findings loss and consolidation lingula and left lower lobe may represent atelectasis however pne umonia or aspiration are not excluded. 3. Debris within the trachea, concern for aspiration. 4. Irregular nodular scarring right upper pole with 6 mm nodule. Recommend follow-up according to 20 17 Fleischner Society Guidelines for solid pulmonary nodules: 6-8 mm: In a low risk patient, CT at 6- 12 months, then consider CT at 18-24 months. In a high risk patient (history of smoking or other know n risk factors), CT at 6-[address] at 18-24 months. ------ Exposure: One or more of the following individualized dose reduction techniques were utilized for thi s examination: 1. Automated exposure control 2. Adjustment of the mA and/or kV according to patient size 3. Use of iterative reconstruction technique. Electronically signed by: Robert Bradley MD (08/29/2021 1:19 AM) [facility]
--- NOTE | 2021-08-29 01:43 | EKG ---
[address] [address] Test Date: 2021-08-28 Test Time: 23:59:49 Pat Name: CHARLIE MORRIS Department: Room: Gender: M Platform Man: : 1945 Requested By: ROSY PETERS Order Number: [id number] Reading MD: Dat Jessica Measurements Intervals [place] Rate: 90 P: 25 NM: 142 QRS: -10 QRSD: 76 T: 25 QT: 346 QTc: 427 Interpretive Statements SINUS RHYTHM Electronically Signed On 09-01-2021 10:28:36 TIG WELDER by Dat Jessica
[2021-08-29] MEDS ORDERED: ONDANSETRON PF 4 MG/2 ML VIAL. IVP PRN (02:30)
[2021-08-29] MEDS ORDERED: ACETAMINOPHEN 325 MG TABLET PO PRN (02:30)
[2021-08-29] MEDS ORDERED: IV RINGERS SOLUTION,LACTATED 1,000 ML IV ONE (02:30)
[2021-08-29 02:31] LABS: CLARITY,URINE CLOUDY; COLOR,URINE BROWN
[2021-08-29 02:32] LABS: BACTERIA,URINE MOD /HPF (0-FEW); RBC,URINE >40 /HPF (0-2); SQUAMOUS EPITHELIAL CELL,UR OCC /LPF; WBC,URINE 20-40 /HPF (0-4)
[2021-08-29 03:34] VITALS: BP 133/76
[2021-08-29] MEDS ORDERED: PRED-220 PO (03:41)
[2021-08-29] MEDS ORDERED: GUAI600T47 PO (03:41)
[2021-08-29] MEDS ORDERED: CYAN100072 PO (03:41)
[2021-08-29] MEDS ORDERED: BUSP5TAB PO (03:41)
[2021-08-29] MEDS ORDERED: DOXY100C3 PO (03:41)
[2021-08-29] MEDS ORDERED: SERT-267 PO (03:41)
[2021-08-29] MEDS ORDERED: IPRA3AMP29 NEB (03:41)
[2021-08-29] MEDS ORDERED: ASPI-630 PO (03:41)
[2021-08-29] MEDS ORDERED: LACT1CAP37 PO (03:41)
[2021-08-29] MEDS ORDERED: AMOX1TAB61 PO (03:41)
[2021-08-29 05:40] VITALS: BP 129/71
--- NOTE | 2021-08-29 09:13 | HP ---
DATE OF SERVICE: 08/29/2021 ADMIT DATE: 08/29/2021 ATTENDING PHYSICIAN: Dr. Fleming. CHIEF COMPLAINT: Altered mentation and shortness of breath. HISTORY OF PRESENT ILLNESS: The patient is a 76-year-old gentleman from a local long-term. He tested positive for COVID last September. He also has a ventriculoperitoneal shunt. He was admitted through the ED with low-grade fevers, some minimal dyspnea and chest x-ray evidence of an infiltrate in the left lingula. He was started on antibiotics. He is profoundly demented. He is a DNR per advanced directive. PAST MEDICAL HISTORY: Gleaned from the chart. He has a longstanding history of ventriculoperitoneal shunt, benign neoplasm of the brain. He has a local neurosurgeon identified as a primary care doctor. There is also diabetes, dementia, anemia of chronic disease, hypertension and hypothyroidism. ALLERGIES: He has no recorded drug allergies. CURRENT MEDICATIONS: From the long-term include the following: He was on scheduled Tylenol, albuterol, amlodipine, aspirin, BuSpar, vitamin B12, doxycycline, ferrous sulfate, guaifenesin, lactobacillus, Synthroid, metformin, multivitamin, MiraLax, prednisone, Zoloft and vitamin B complex. SOCIAL HISTORY: He is a nonsmoker, nondrinker. FAMILY HISTORY: Unobtainable. REVIEW OF SYSTEMS: Unobtainable due to the patient's confusion. PHYSICAL EXAMINATION: GENERAL: When I saw her, this is a pleasant elderly gentleman who was confused. He has no insight as to what is going on. VITAL SIGNS: Initial vital signs showed a blood pressure 129/71 mmHg. He is afebrile, pulse is 74 and regular, oxygen saturation 96% on room air. HEENT: The head is without trauma. There is previous craniotomy scars of the frontal area that is well healed. His pupils are reactive. Sclerae nonicteric. The oropharynx is clear. NECK: Supple. There is no stridor. LUNGS: Clear with good breath sounds. CARDIOVASCULAR: Showed regular heart tones. No gallops. ABDOMEN: Soft. EXTREMITIES: Without edema. NEUROLOGIC: Pleasantly confused. He has no focal deficits. SKIN: Warm and dry. PERTINENT LABORATORY AND X-RAY STUDIES: On admission, his hemoglobin was 12.3 g/dL, white count 22,200. Sodium was 149 mEq, potassium 4.8 mEq, nonfasting blood sugar 296 and creatinine is 3.9 mg/dL with a BUN of 117. ASSESSMENT: A 76-year-old gentleman with; 1. Pneumonia, left lingula. 2. Evidence of hydronephrosis. 3. Chronic kidney disease stage V. I do not know what his baseline creatinine is. 4. Profound dementia. 5. History of supposedly brain tumor. 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 6. Generalized debilitation. PLAN: 1. Admit to the inpatient unit. 2. Gentle IV hydration. 3. Antibiotics as ordered. 4. Continue some home meds. 5. Serial chemistries. 6. He remains a DNR per advanced directive. I will try to contact the daughter and let her know what the game plan is regarding his care. LEV DR: Darek TID: [id number]
[2021-08-29 10:07] VITALS: BP 124/66
[2021-08-29 15:40] VITALS: BP 135/75
[2021-08-29 20:06] VITALS: BP 131/79
[2021-08-29] MEDS: IV NORMAL SALINE 1,000ML 1,000 ML IV SCH (21:00)
[2021-08-29 23:29] VITALS: BP 134/75
[2021-08-30 06:40] VITALS: BP 134/79
[2021-08-30 07:28] LABS: BASO # 0.1 x10^3/uL (0.0-0.2); BASO % 0 % (0-3); EOS % 0 % (0-3); HEMATOCRIT 39.1 % (39.0-53.0); HEMOGLOBIN 12.2 g/dL (13.0-17.5); LYMPH % 30 % (24-48); MEAN CORPUSCULAR HEMOGLOBIN 27 pg (25-35); MEAN CORPUSCULAR HGB CONC 31 g/dL (31-37); MEAN CORPUSCULAR VOLUME 85 fL (79-100); MONO # 1.2 x10^3/uL (0.0-1.1); MONO % 6 % (0-9); NEUT # 12.9 x10^3uL (1.8-7.7); NEUT % 64 % (31-73); PLATELET COUNT 165 x10^3/uL (140-400); RED CELL DISTRIBUTION WIDTH 17.1 % (11.5-14.5); WHITE BLOOD COUNT 20.3 x10^3/uL (4.0-11.0)
[2021-08-30 07:33] LABS: CALCIUM 8.9 mg/dL (8.5-10.1); GFR 39.4; POTASSIUM 4.4 mmol/L (3.5-5.1)
[2021-08-30] MEDS: metFORMIN 500 MG TABLET PO SCH ×2 (08:13→17:11)
[2021-08-30] MEDS: IV NORMAL SALINE 1,000ML 1,000 ML IV SCH ×2 (08:14→08:33)
[2021-08-30] MEDS ORDERED: IV DEXTROSE 5% - 0.9 % NACL 1,000 ML IV SCH (08:45)
--- NOTE | 2021-08-30 08:54 | PN ---
DATE: 08/30/2021 ATTENDING PHYSICIAN: Dr. Fleming. SUBJECTIVE: He is much more alert today. He remains bedridden. I did notice he has some sacral decubiti from being bedridden. These are chronic and most likely will not heal. OBJECTIVE FINDINGS: VITAL SIGNS: Today, blood pressure this morning is 134/79 mmHg. His oxygen saturation is 94% on room air. He was afebrile. Pulse is 80 and regular. HEENT: Head is without trauma. Pupils are reactive. Sclerae are nonicteric. The oropharynx is clear. NECK: Supple, no bruits identified. LUNGS: Shallow respirations. CARDIOVASCULAR: Regular heart tones. No gallop. ABDOMEN: Soft. EXTREMITIES: Without edema, but he is nonambulatory. There is significant muscle wasting. Sacral decubiti of the backside noted. PERTINENT LABORATORY DATA: Sodium was up to 158 mEq per liter, chloride is concomitantly up, creatinine remains elevated at 2.0 mg/dL with a BUN of 74 mg/dL. Nonfasting blood sugar is 281. ASSESSMENT: 1. A 76-year-old alf resident with alf acquired pneumonia. 2. Dehydration with free water deficit. 3. Resultant hypernatremia and hyperchloremia due to free water deficit. 4. Chronic kidney disease, stage 5. 5. History of brain tumor as well as placement of ventriculoperitoneal shunt for hydrocephalus. 6. Profound dementia. 7. Generalized debilitation. PLAN: 1. Continue antibiotics as ordered. 2. Fluids have been changed from normal saline to D5W to correct free water deficit. 3. Serial chemistries. 4. Diet as tolerated. 5. The patient is a DNR per advanced directives. I will contact the daughter when available. JIM/SIDNEY HERNANDEZ: Darek TID: [id number]
[2021-08-30] MEDS: IV DEXTROSE 5% 1,000 ML IV SCH ×2 (09:06→22:47)
[2021-08-30 10:40] VITALS: BP 137/71
[2021-08-30] MEDS ORDERED: DEXTROSE 50% 25 GM / 50ML DISP.SYRIN. IV PRN (12:15)
[2021-08-30] MEDS: INSULIN LISPRO 300 UNITS/3 ML VIAL. SQ SCH ×2 (12:30→17:10)
[2021-08-30 15:00] VITALS: BP 117/66
[2021-08-30] MEDS: ACETAMINOPHEN 325 MG TABLET PO PRN (15:32)
[2021-08-30 20:09] VITALS: BP 121/70
[2021-08-30] MEDS: LACTOBACILLUS RHAMNOSUS GG 1 CAPSULE. PO SCH (21:55)
[2021-08-30 23:57] VITALS: BP 118/67
[2021-08-31 06:05] VITALS: BP 136/75
[2021-08-31 06:46] LABS: CALCIUM 8.5 mg/dL (8.5-10.1); CREATININE 2.4 mg/dL (0.7-1.3); GFR 31.9; POTASSIUM 4.4 mmol/L (3.5-5.1)
[2021-08-31 06:58] LABS: HEMATOCRIT 37.2 % (39.0-53.0); HEMOGLOBIN 11.5 g/dL (13.0-17.5); RED BLOOD COUNT 4.34 x10^6/uL (4.30-5.70); RED CELL DISTRIBUTION WIDTH 16.8 % (11.5-14.5); WHITE BLOOD COUNT 19.6 x10^3/uL (4.0-11.0)
[2021-08-31] MEDS: LACTOBACILLUS RHAMNOSUS GG 1 CAPSULE. PO SCH ×2 (07:50→20:05)
[2021-08-31] MEDS: metFORMIN 500 MG TABLET PO SCH ×4 (07:50→17:01)
[2021-08-31] MEDS: ACETAMINOPHEN 325 MG TABLET PO PRN (07:50)
[2021-08-31] MEDS: INSULIN LISPRO 300 UNITS/3 ML VIAL. SQ SCH ×3 (07:51→16:58)
--- NOTE | 2021-08-31 08:22 | PN ---
DATE: 08/31/2021 ATTENDING PHYSICIAN: Dr. Fleming SUBJECTIVE: He is alert. He has no new complaints. He is eating some foods, but he is still nonambulatory and bedridden. OBJECTIVE FINDINGS: VITAL SIGNS: Blood pressure this morning is 136/75, pulse is regular. He is afebrile. Oxygen saturation 94% on room air. HEENT: He has previous surgical scars on his front of the scalp. Oropharynx is clear. NECK: Supple, no bruits. LUNGS: Otherwise clear with good breath sounds. CARDIOVASCULAR: Regular heart tones. No gallops. ABDOMEN: Soft. EXTREMITIES: Show no edema. SKIN: He has sacral decubitus pressure sores. LABORATORY STUDIES: Today, his creatinine is down to 2.4 mg percent from 3.9 mg/dL on admission. The sodium is starting to correct, it is down to 154 mEq, chloride is 116, BUN 73. Sugars are up due to the dextrose in the D5W solution. ASSESSMENT: 1. A 76-year-old gentleman, assisted resident with assisted-acquired pneumonia. 2. Sepsis syndrome with positive blood cultures. 3. Dehydration with free water deficit. 4. Resultant hypernatremia. 5. Hyperglycemia due to dextrose. 6. Chronic kidney disease stage V. 7. History of brain tumor as well as hydrocephalus with history of ventriculoperitoneal shunt. 8. Profound dementia. 9. Generalized debilitation. 10. Pressure sores from bed rest. PLAN: 1. Continue dextrose as ordered. 2. Serial chemistries. 3. Followup x-ray in the morning. 4. He remains a DNR per advanced directive. 5. Continue antibiotics. 6. Await microbiology identification and sensitivity to adjust his antibiotics. ADELITA DR: Darek TID: [id number]
[2021-08-31 11:24] VITALS: BP 119/69
[2021-08-31] MEDS: IV DEXTROSE 5% 1,000 ML IV SCH (11:52)
[2021-08-31 15:03] VITALS: BP 120/79
[2021-08-31 19:37] VITALS: BP 129/75
[2021-08-31 22:59] VITALS: BP 128/55
[2021-09-01] MEDS: IV DEXTROSE 5% 1,000 ML IV SCH ×3 (01:06→23:48)
[2021-09-01 05:00] VITALS: BP 120/67
[2021-09-01 06:09] LABS: HEMATOCRIT 36.5 % (39.0-53.0); HEMOGLOBIN 11.2 g/dL (13.0-17.5); RED BLOOD COUNT 4.27 x10^6/uL (4.30-5.70); RED CELL DISTRIBUTION WIDTH 16.9 % (11.5-14.5); WHITE BLOOD COUNT 19.3 x10^3/uL (4.0-11.0)
[2021-09-01 06:19] LABS: CREATININE 2.3 mg/dL (0.7-1.3); GFR 33.5
[2021-09-01] MEDS: metFORMIN 500 MG TABLET PO SCH ×2 (08:00→17:00)
[2021-09-01] MEDS: LACTOBACILLUS RHAMNOSUS GG 1 CAPSULE. PO SCH ×2 (09:00→19:43)
[2021-09-01] MEDS: INSULIN LISPRO 300 UNITS/3 ML VIAL. SQ SCH ×3 (10:12→17:00)
--- NOTE | 2021-09-01 10:35 | PN ---
DATE: 09/01/2021 ATTENDING PHYSICIAN: Dr. Fleming. SUBJECTIVE: He is fairly alert, eating breakfast independently. No new complaints. He is not any obvious distress. OBJECTIVE FINDINGS: VITAL SIGNS: Blood pressure this morning is 120/67, pulse is 66 and regular, temperature 98.5 degrees Fahrenheit and her oxygen saturations are 97% on room air. HEENT: Head is without trauma, previous scar is well healed. NECK: Supple, no bruits. LUNGS: Shallow respirations. CARDIOVASCULAR: Showed regular heart tones. No gallop. ABDOMEN: Soft. EXTREMITIES: Without edema. NEUROLOGIC FINDINGS: Focally intact. He is not ambulatory. PERTINENT LABORATORY STUDIES: Sodium is down to 147 mEq per liter with a chloride concomitantly high at 113, creatinine is down to 2.3 mg/dL, BUN is down to 59 mg/dL. Nonfasting blood sugar 268. ASSESSMENT: 1. This 76-year-old gentleman, intermediate patient has intermediate-acquired pneumonia. 2. Sepsis syndrome with positive blood cultures, improved. 3. Dehydration with free water deficit and resultant hypernatremia, being corrected. 4. Hyperglycemia due to the dextrose solution we are using to correct his hypernatremia. 5. Chronic kidney disease stage V. 6. History of brain tumor and previous craniotomy as well as hydrocephalus with the placement of ventriculoperitoneal shunt. 7. Profound dementia. 8. Generalized debilitation. 9. Pressure sores on his sacrum from bed rest. PLAN: 1. Continue antibiotics as ordered. 2. Follow up chest x-ray later today. 3. We will discuss discharge planning back to the intermediate. 4. Continue dextrose solution with serial chemistries. JIM/FRANSISCO DR: Darek TID: [id number] CC: Ruthie Young
[2021-09-01 11:13] VITALS: BP 109/72
[2021-09-01 15:43] VITALS: BP 112/69
[2021-09-01] MEDS ORDERED: VITS A & D/LANOLIN TOPICAL OINTMENT 42GM TUBE. TP PRN (18:00)
[2021-09-01 19:00] VITALS: BP 111/70
[2021-09-01 23:26] VITALS: BP 120/69
[2021-09-02 05:00] VITALS: BP_SYST 111; BP_SYST 134; BP_DIAS 70; BP_DIAS 71
[2021-09-02] MEDS: metFORMIN 500 MG TABLET PO SCH ×2 (08:21→17:16)
[2021-09-02] MEDS: LACTOBACILLUS RHAMNOSUS GG 1 CAPSULE. PO SCH ×2 (08:21→20:34)
[2021-09-02] MEDS: INSULIN LISPRO 300 UNITS/3 ML VIAL. SQ SCH ×4 (08:27→17:17)
--- NOTE | 2021-09-02 10:29 | RAD ---
Single view of the chest. 09/02/2021 9:38 AM Indication: Reason: follow up chest xray Comparison: Chest abdomen and pelvis CT August 29, 2021 Findings: Low lung volumes noted. Left basilar opacification may represent a small effusion, atelecta sis, or infiltrate. Diffuse interstitial thickening is also present, possibly edema, or an atypical/v iral infectious process. No pneumothorax is seen. Shunt catheter projects over the right neck and med iastinum, but is poorly visualized over the abdomen. No acute osseous changes are identified. IMPRESSION: 1.Low lung volumes with left basilar atelectasis, infiltrate, or small effusion 2. Diffuse interstitial thickening, possibly edema or an atypical/viral infectious process Electronically signed by: Derrell Blake MD (09/02/2021 10:27 AM) [id number]
[2021-09-02 11:37] VITALS: BP 119/54
--- NOTE | 2021-09-02 12:05 | PN ---
DATE: 09/02/2021 ATTENDING PHYSICIAN: Dr. Fleming. SUBJECTIVE: Fairly alert. No new acute distress. OBJECTIVE FINDINGS: VITAL SIGNS: Blood pressure this morning is 134/71 mmHg. He is afebrile. Oxygen saturation 99% on room air. HEENT: Head is without trauma. Pupils are reactive. Sclerae nonicteric. Oropharynx clear. NECK: Supple, no wheezing or rhonchi. LUNGS: Diminished breath sounds at left base. CARDIOVASCULAR: Regular heart tones. ABDOMEN: Soft. EXTREMITIES: Without edema. NEUROLOGIC: The patient is alert, responsive, but he is nonambulatory. IMAGING: Followup chest x-ray still shows left-sided volume loss with lingular and left lower lobe consolidation, certainly empyema cannot be ruled out. ASSESSMENT: 1. A 76-year-old gentleman with nursing-acquired pneumonia. 2. Consolidation in the left lingula and left lower lobe. 3. History of normal pressure hydrocephalus. 4. Chronic kidney disease stage IV. Creatinine yesterday was down to 2.3 mg percent. 5. Dehydration with hypernatremia, being corrected slowly. PLAN: 1. Continue antibiotics as ordered. 2. I have discussed the case with his daughter and power of commercial real estate attorney. She is agreeable for the patient to be transferred to [place] for pulmonary consultation and possible thoracoscopy. They do not have a bed available today. I should try to contact Dr. Nelson who can transfer him as early as tomorrow. JIM/FAUSTINO DR: JIM/jt TID: [id number]
[2021-09-02 15:18] VITALS: BP 104/58
[2021-09-02] MEDS: IV DEXTROSE 5% 1,000 ML IV SCH (15:25)
[2021-09-02 19:59] VITALS: BP 117/68
[2021-09-02 23:45] VITALS: BP 123/68
[2021-09-03] MEDS: IV DEXTROSE 5% 1,000 ML IV SCH ×2 (06:06→17:15)
[2021-09-03 06:07] VITALS: BP 117/69
[2021-09-03] MEDS: metFORMIN 500 MG TABLET PO SCH (08:06)
[2021-09-03] MEDS: LACTOBACILLUS RHAMNOSUS GG 1 CAPSULE. PO SCH ×2 (08:06→20:42)
[2021-09-03] MEDS: INSULIN LISPRO 300 UNITS/3 ML VIAL. SQ SCH ×3 (08:07→16:51)
[2021-09-03 11:29] VITALS: BP 103/56
[2021-09-03] MEDS ORDERED: ACETAMINOPHEN 325 MG TABLET PO PRN (14:00)
[2021-09-03] MEDS ORDERED: DEXTROSE 50% 25 GM / 50ML DISP.SYRIN. IV PRN (14:15)
[2021-09-03 15:28] VITALS: BP 128/72
[2021-09-03] MEDS: IPRATRPIUM/ALBUTEROL 0.5/2.5MG 3 ML NEBU. NEB SCH ×3 (15:40→21:58)
[2021-09-03] MEDS: predniSONE 10 MG TABLET. PO SCH (16:48)
[2021-09-03 19:00] VITALS: BP 119/63
--- NOTE | 2021-09-03 19:24 | PN ---
DATE: 09/03/2021 SUBJECTIVE: The patient is a 76-year-old -[place] male patient, a half-way resident at [facility], who apparently was admitted on 08/29/2021 with altered mental status and shortness of breath. He was treated for what seemed to be left lingula pneumonia and right-sided hydronephrosis, as well as chronic kidney disease stage 4. The patient is known to have a benign brain tumor and has normal pressure hydrocephalus, for which he has a ventriculoperitoneal shunt. He was started on IV fluid and IV antibiotic in the form of ceftriaxone. He did have also marked hypernatremia on admission, which has actually worsened, although as of the last measurement, it was down to 147. His urine culture has been negative and showed no growth. His blood cultures have grown Staphylococcus aureus that is methicillin-resistant, that is sensitive to clindamycin, ciprofloxacin, ceftaroline, daptomycin, linezolid, as well as rifampin and vancomycin. The organism has grown in 3/4 bottles, indicating that this is an infection rather than bacteremia. PHYSICAL EXAMINATION: GENERAL: When I examined him this afternoon, he was somewhat pale, but not jaundiced or cyanosed. No lymphadenopathy, no thyromegaly, no jugular venous distention. No lower limb edema. VITAL SIGNS: Her heart rate was 61, blood pressure was 103/56, temperature was 98.2, respiratory rate was 20 and oxygen saturation was 96% on room air. HEAD, EYES, EARS, NOSE, AND THROAT: Normocephalic, atraumatic. NECK: Supple. HEART: Normal first and second heart sounds. No gallop or murmur. CHEST: Showed central trachea, equally reduced chest expansion, air entry, vesicular breath sounds with crepitation mostly on the left side posteriorly. I could not appreciate any rhonchi. ABDOMEN: Distended, soft, nontender. NEUROLOGIC: He is demented without any obvious lateralizing sign, although the patient is mostly bedbound. He has some pressure injury on his coccyx and both heels. He has an indwelling Thurston catheter. His intake over the last 24 hours was 1650, output was 1350. LABORATORY DATA: His most recent lab work showed a white cell count of 19,000, hemoglobin 11, hematocrit 36, MCV 85 and platelet count of 152,000. His chemistry showed a serum sodium 147, potassium 4, chloride 113, bicarbonate 27, anion gap of 7, BUN 59, creatinine 2.3. Estimated GFR was 33 mL per minute. His glucose was 194 and calcium was 8. Urinalysis showed that he has 20-40 wbc's and moderate amount of bacteria, although the urine culture has been negative. ASSESSMENT: 1. Questionable healthcare-associated pneumonia involving mostly the left lingula and the patient was treated with IV Rocephin without any improvement. White cell count continued to be persistently high. 2. Methicillin-resistant Staphylococcus aureus bacteremia with growth of this bacteria in 12/05, indicating that this is an infection and therefore, I discontinued ceftriaxone and switched him to IV linezolid 600 mg twice a day. The patient has other medical problems including hypernatremia. 3. Xuevx-wm-borygid kidney injury. His creatinine is gradually improving. It came down from 3.9 to 2.3. 4. Hypernatremia with a serum sodium down to 147 from 154. 5. He has also right-sided hydronephrosis. 6. Other medical problems including dementia without behavioral disturbances, hypothyroidism, hypertension, generalized muscle weakness. He is also known to have anemia, type 2 diabetes mellitus. PLAN: I will also order an echocardiogram and if it is positive for any core vegetation, he might have to have a PICC line and prolonged treatment with IV antibiotic. I will also switch him to insulin sliding scale, given that his creatinine is 2.3 and metformin is contraindicated at this stage of his kidney disease. ZANDER DR: Flor TID: [id number]
[2021-09-03] MEDS ORDERED: busPIRone 5 MG TABLET. PO SCH (21:00)
[2021-09-03] MEDS ORDERED: LACTOBACILLUS RHAMNOSUS GG 1 CAPSULE. PO SCH (21:00)
[2021-09-03 23:30] VITALS: BP 118/64
[2021-09-04] MEDS: IV DEXTROSE 5% 1,000 ML IV SCH ×2 (01:05→10:35)
[2021-09-04 05:00] VITALS: BP 104/76
[2021-09-04] MEDS: LEVOTHYROXINE 88 MCG TABLET PO SCH (06:00)
[2021-09-04] MEDS: IPRATRPIUM/ALBUTEROL 0.5/2.5MG 3 ML NEBU. NEB SCH ×4 (06:18→21:00)
[2021-09-04 06:55] LABS: BASO % 0 % (0-3); EOS # 0.2 x10^3/uL (0.0-0.7); EOS % 1 % (0-3); HEMATOCRIT 32.5 % (39.0-53.0); HEMOGLOBIN 10.1 g/dL (13.0-17.5); LYMPH # 3.5 x10^3/uL (1.0-4.8); LYMPH % 22 % (24-48); MEAN CORPUSCULAR HEMOGLOBIN 26 pg (25-35); MEAN CORPUSCULAR HGB CONC 31 g/dL (31-37); MEAN CORPUSCULAR VOLUME 85 fL (79-100); MONO # 0.6 x10^3/uL (0.0-1.1); MONO % 4 % (0-9); NEUT # 11.3 x10^3uL (1.8-7.7); NEUT % 73 % (31-73); PLATELET COUNT 149 x10^3/uL (140-400); RED BLOOD COUNT 3.84 x10^6/uL (4.30-5.70); RED CELL DISTRIBUTION WIDTH 16.4 % (11.5-14.5); WHITE BLOOD COUNT 15.6 x10^3/uL (4.0-11.0)
[2021-09-04 07:09] LABS: ALBUMIN 2.1 g/dL (3.4-5.0); ALBUMIN/GLOBULIN RATIO 0.6 (1.0-1.7); CALCIUM 7.8 mg/dL (8.5-10.1); CREATININE 1.6 mg/dL (0.7-1.3); POTASSIUM 3.6 mmol/L (3.5-5.1); TOTAL BILIRUBIN 0.2 mg/dL (0.2-1.0); TOTAL PROTEIN 5.8 g/dL (6.4-8.2)
[2021-09-04] MEDS: POLYETHYLENE GLYCOL 3350 17 GM PACKET. PO SCH (08:10)
[2021-09-04] MEDS: LACTOBACILLUS RHAMNOSUS GG 1 CAPSULE. PO SCH ×2 (08:11→20:47)
[2021-09-04] MEDS: CYANOCOBALAMIN (VITAMIN B-12) 1,000 MCG TABLET. PO SCH (08:11)
[2021-09-04] MEDS: ASPIRIN CHEWABLE 81 MG TABLET. PO SCH (08:11)
[2021-09-04] MEDS: MULTIVITAMIN with MINERAL TABLET. PO SCH (08:15)
[2021-09-04] MEDS: FERROUS SULFATE 325 MG TABLET. PO SCH (08:15)
[2021-09-04] MEDS: VITAMIN B COMPLEX CAPSULE. PO SCH (08:15)
[2021-09-04] MEDS: INSULIN LISPRO 300 UNITS/3 ML VIAL. SQ SCH ×3 (08:16→16:51)
[2021-09-04] MEDS: amLODIPine BESYLATE 5 MG TABLET PO SCH (08:17)
[2021-09-04] MEDS: DAPTOmycin (GENERIC) IVPB 500 MG in IV NORMAL SALINE 50ML 50 ML IV SCH (09:57)
[2021-09-04 10:35] VITALS: BP 116/62
[2021-09-04 11:43] LABS: % BANDS 1 % (0-9); % LYMPHS 18 % (24-48); % MONOS 1 % (0-10); % SEGS 80 % (35-66); ANISOCYTOSIS PRESENT; PLT ESTIMATE ADEQUATE (ADEQUATE)
[2021-09-04] MEDS: IV DEXTROSE 5 %-0.45 % NACL 1,000 ML IV SCH ×2 (14:09→22:35)
[2021-09-04 15:18] VITALS: BP 108/56
[2021-09-04] MEDS: predniSONE 10 MG TABLET. PO SCH (16:46)
[2021-09-04 19:40] VITALS: BP 127/70
--- NOTE | 2021-09-04 20:18 | PN ---
SUBJECTIVE: The patient is sitting slightly propped up in bed, in no apparent respiratory distress. He is awake, alert. On questioning him, he denied any complaint. PHYSICAL EXAMINATION: GENERAL: When I examined him, he looked well and was clearly in no apparent respiratory distress. He was pale, but not jaundiced or cyanosed, no lymphadenopathy, no thyromegaly, no jugular venous distention. No limb edema. VITAL SIGNS: His heart rate was 60, blood pressure was 116/62, temperature was 98, respiratory rate 20, and oxygen saturation was 98% on room air. HEAD, EYES, EARS, NOSE, AND THROAT: Normocephalic, atraumatic. NECK: Supple. HEART: Showed normal first and second heart sounds, no gallop or murmur. CHEST: Shows central trachea, equal bilateral chest expansion, air entry, vesicular breath sounds with crepitation mostly in the left side posteriorly. I could not appreciate any rhonchi. ABDOMEN: Distended, soft, nontender. NEUROLOGIC: He is awake, alert, responding appropriately. Cranial nerves intact. He moves upper extremities to much good extent than lower extremities. He has an indwelling Thurston catheter. He has wounds on both heels and his sacral area. His intake was 1400, output was 1100. LABORATORY DATA: As of this morning, his white cell count is down to 15,600, hemoglobin 10, hematocrit 32, MCV 85 and platelet count of 146,000 with a normal manual differential. His chemistry showed a serum sodium 135, potassium 3.6, chloride 102, bicarbonate 27, anion gap of 6, BUN 33, creatinine 1.6. Estimated GFR was 51 mL per minute. His glucose was 246, calcium was 7.8. Total bilirubin, AST, ALT, alkaline phosphatase were normal. Total protein 5.8, albumin was 2.1. His urine cultures showed no growth and his final blood culture showed growth of gram-positive cocci identified as methicillin-resistant Staphylococcus aureus sensitive to daptomycin and Zyvox. ASSESSMENT: 1. Methicillin-resistant Staphylococcus aureus pneumonia. 2. Methicillin-resistant Staphylococcus aureus bacteremia. 3. Acute on chronic kidney injury, improving. 4. Hypernatremia has improved. 5. The patient has multiple other medical problems including right-sided hydronephrosis. 6. Dementia without behavioral disturbance. 7. Hypothyroidism. 8. Hypertension. 9. Anemia of chronic kidney disease. 10. Type 2 diabetes mellitus. PLAN: To continue with IV Zyvox and IV daptomycin. I will change the IV fluid to D5 half normal and plan is to continue with IV daptomycin and Zyvox. We will await for the echocardiogram and PICC line and I will change IV fluid to D5 half normal and repeat his labs tomorrow and if he was accepted at [facility] or the echocardiogram showed any evidence of vegetation, he should go to [facility] also. PING DR: Flor TID: [id number]
[2021-09-04 23:31] VITALS: BP 110/60
[2021-09-05] MEDS: IPRATRPIUM/ALBUTEROL 0.5/2.5MG 3 ML NEBU. NEB SCH ×4 (05:32→21:06)
[2021-09-05] MEDS: LEVOTHYROXINE 88 MCG TABLET PO SCH (05:40)
[2021-09-05 06:19] VITALS: BP 114/53
[2021-09-05] MEDS: amLODIPine BESYLATE 5 MG TABLET PO SCH (09:00)
[2021-09-05] MEDS: POLYETHYLENE GLYCOL 3350 17 GM PACKET. PO SCH (09:00)
[2021-09-05] MEDS: CYANOCOBALAMIN (VITAMIN B-12) 1,000 MCG TABLET. PO SCH (09:16)
[2021-09-05] MEDS: ASPIRIN CHEWABLE 81 MG TABLET. PO SCH (09:16)
[2021-09-05] MEDS: MULTIVITAMIN with MINERAL TABLET. PO SCH (09:16)
[2021-09-05] MEDS: VITAMIN B COMPLEX CAPSULE. PO SCH (09:16)
[2021-09-05] MEDS: LACTOBACILLUS RHAMNOSUS GG 1 CAPSULE. PO SCH ×2 (09:16→21:21)
[2021-09-05] MEDS: FERROUS SULFATE 325 MG TABLET. PO SCH (09:17)
[2021-09-05] MEDS: INSULIN LISPRO 300 UNITS/3 ML VIAL. SQ SCH ×3 (09:19→17:00)
[2021-09-05] MEDS: DAPTOmycin (GENERIC) IVPB 500 MG in IV NORMAL SALINE 50ML 50 ML IV SCH (09:20)
[2021-09-05 11:14] VITALS: BP_SYST 68; BP_SYST 84; BP_DIAS 68; BP_DIAS 84
[2021-09-05] MEDS: IV DEXTROSE 5 %-0.45 % NACL 1,000 ML IV SCH (11:30)
[2021-09-05 14:01] VITALS: BP 119/60
[2021-09-05 14:36] LABS: HEMATOCRIT 31.2 % (39.0-53.0); HEMOGLOBIN 9.8 g/dL (13.0-17.5); RED BLOOD COUNT 3.68 x10^6/uL (4.30-5.70); RED CELL DISTRIBUTION WIDTH 16.2 % (11.5-14.5); WHITE BLOOD COUNT 14.5 x10^3/uL (4.0-11.0)
[2021-09-05 15:00] VITALS: BP 116/60
[2021-09-05 15:49] LABS: ALBUMIN/GLOBULIN RATIO 0.5 (1.0-1.7); CALCIUM 7.8 mg/dL (8.5-10.1); CREATININE 1.1 mg/dL (0.7-1.3); GFR 78.5; POTASSIUM 3.3 mmol/L (3.5-5.1); TOTAL BILIRUBIN 0.2 mg/dL (0.2-1.0); TOTAL PROTEIN 5.7 g/dL (6.4-8.2)
[2021-09-05] MEDS: predniSONE 10 MG TABLET. PO SCH (16:57)
[2021-09-05 20:06] VITALS: BP 102/59
--- NOTE | 2021-09-05 21:34 | PN ---
DATE: 09/05/2021 SUBJECTIVE: The patient is resting, slightly propped up in bed, in no apparent distress, awake, alert. On questioning him, he denied any complaint. Nursing staff did not voice any concerns, stated that he has uneventful night. OBJECTIVE: GENERAL: When I examined him, he looked well, pale, but no jaundice, cyanosis or thyromegaly. No jugular venous distention. No lower limb edema. VITAL SIGNS: His heart rate was 58, blood pressure was a mean arterial pressure of 79 mmHg, temperature was 97.6, respiratory rate 20, and oxygen saturation was 99% on room air. The rest of clinical exam is stable. His intake was 2200, output was 2400 as of this morning. LABORATORY DATA: Still pending at the time of this dictation. ASSESSMENT: 1. Methicillin-resistant Staphylococcus aureus pneumonia. 2. Methicillin-resistant Staphylococcus aureus bacteremia. 3. Acute on chronic kidney injury. 4. Hypernatremia. 5. Benign prostatic hypertrophy. 6. Dementia without behavioral disturbances. 7. Hypothyroidism. 8. Hypertension. 9. Anemia of chronic kidney disease. 10. Type 2 diabetes mellitus. PLAN: To continue with IV Zyvox and IV daptomycin. I changed his IV fluid to continue with D5 half normal, and we have ordered an echocardiogram and PICC line, and awaiting a bed at [facility], hopefully be discharged there tomorrow. BÁRBARA/IRAJ HERNANDEZ: Flor TID: [id number]
[2021-09-06 00:35] VITALS: BP 123/67
[2021-09-06] MEDS: IV DEXTROSE 5 %-0.45 % NACL 1,000 ML IV SCH ×3 (02:12→21:47)
[2021-09-06] MEDS: IPRATRPIUM/ALBUTEROL 0.5/2.5MG 3 ML NEBU. NEB SCH ×4 (05:24→21:06)
[2021-09-06 06:00] VITALS: BP 105/62
[2021-09-06] MEDS: LEVOTHYROXINE 88 MCG TABLET PO SCH (06:05)
[2021-09-06] MEDS: POLYETHYLENE GLYCOL 3350 17 GM PACKET. PO SCH (09:00)
[2021-09-06] MEDS: amLODIPine BESYLATE 5 MG TABLET PO SCH (09:00)
[2021-09-06] MEDS: VITAMIN B COMPLEX CAPSULE. PO SCH (09:00)
[2021-09-06] MEDS: INSULIN LISPRO 300 UNITS/3 ML VIAL. SQ SCH ×3 (09:38→17:01)
[2021-09-06] MEDS: DAPTOmycin (GENERIC) IVPB 500 MG in IV NORMAL SALINE 50ML 50 ML IV SCH (09:38)
[2021-09-06] MEDS: FERROUS SULFATE 325 MG TABLET. PO SCH (09:39)
[2021-09-06] MEDS: ASPIRIN CHEWABLE 81 MG TABLET. PO SCH (09:39)
[2021-09-06] MEDS: LACTOBACILLUS RHAMNOSUS GG 1 CAPSULE. PO SCH ×2 (09:39→21:48)
[2021-09-06] MEDS: CYANOCOBALAMIN (VITAMIN B-12) 1,000 MCG TABLET. PO SCH (09:41)
[2021-09-06] MEDS: MULTIVITAMIN with MINERAL TABLET. PO SCH (09:41)
[2021-09-06 10:38] VITALS: BP 123/68
[2021-09-06 11:06] LABS: CALCIUM 7.7 mg/dL (8.5-10.1); CREATININE 0.9 mg/dL (0.7-1.3); POTASSIUM 3.6 mmol/L (3.5-5.1)
--- NOTE | 2021-09-06 13:50 | PN ---
DATE: 09/06/2021 SUBJECTIVE: The patient is resting, slightly propped up in bed, in no apparent respiratory distress. He is awake, alert. On questioning him, he denied any complaint. The nursing staff did not voice any concerns that he had an uneventful night. His blood pressure is somewhat low, so discontinued his amlodipine altogether. His lab work has dramatically improved. In fact, his creatinine came down from 3.9 to 0.9 and his sodium has finally normalized from 158 down to 138. His blood cultures grew methicillin-resistant Staphylococcus aureus sensitive to daptomycin and then linezolid. ASSESSMENT: 1. Methicillin-resistant Staphylococcus aureus pneumonia. 2. Methicillin-resistant Staphylococcus aureus bacteremia. 3. Acute on chronic kidney injury, resolved. His serum creatinine is down to 0.9 mg/dL. 4. Hypernatremia, resolved. His serum sodium came down from 158 to 138. 5. Benign prostatic hypertrophy with bladder outlet obstruction requiring indwelling Thurston catheter. 6. Hypothyroidism. 7. Hypertension. 8. Anemia of chronic kidney disease. 9. Type 2 diabetes mellitus. 10. Dementia without behavioral disturbances. PLAN: To continue with IV Zyvox and IV daptomycin. I discontinued his amlodipine. Continue to monitor his blood sugar and adjust insulin as needed. Once we have a bed available for him, the patient can be transferred to [facility]. CONNOR DR: Flor TID: [id number]
[2021-09-06 14:42] VITALS: BP 112/63
[2021-09-06 15:01] VITALS: BP 114/67
[2021-09-06] MEDS: predniSONE 10 MG TABLET. PO SCH (16:22)
[2021-09-06 20:07] VITALS: BP 122/65
[2021-09-07 00:32] VITALS: BP 122/71
[2021-09-07 05:00] VITALS: BP 135/66
[2021-09-07] MEDS: IPRATRPIUM/ALBUTEROL 0.5/2.5MG 3 ML NEBU. NEB SCH ×4 (05:40→21:20)
[2021-09-07] MEDS: LEVOTHYROXINE 88 MCG TABLET PO SCH (05:55)
[2021-09-07] MEDS: IV DEXTROSE 5 %-0.45 % NACL 1,000 ML IV SCH ×3 (07:31→20:35)
[2021-09-07] MEDS: POLYETHYLENE GLYCOL 3350 17 GM PACKET. PO SCH (09:00)
[2021-09-07] MEDS: VITAMIN B COMPLEX CAPSULE. PO SCH (09:00)
[2021-09-07] MEDS: MULTIVITAMIN with MINERAL TABLET. PO SCH (09:17)
[2021-09-07] MEDS: ASPIRIN CHEWABLE 81 MG TABLET. PO SCH (09:17)
[2021-09-07] MEDS: INSULIN LISPRO 300 UNITS/3 ML VIAL. SQ SCH ×3 (09:17→17:12)
[2021-09-07] MEDS: DAPTOmycin (GENERIC) IVPB 500 MG in IV NORMAL SALINE 50ML 50 ML IV SCH (09:18)
[2021-09-07] MEDS: CYANOCOBALAMIN (VITAMIN B-12) 1,000 MCG TABLET. PO SCH (09:19)
[2021-09-07] MEDS: LACTOBACILLUS RHAMNOSUS GG 1 CAPSULE. PO SCH ×2 (09:19→20:34)
[2021-09-07] MEDS: FERROUS SULFATE 325 MG TABLET. PO SCH (09:22)
[2021-09-07 11:31] VITALS: BP 116/60
--- NOTE | 2021-09-07 11:52 | PN ---
DATE: 09/07/2021 SUBJECTIVE: The patient is resting flat in bed, in no apparent distress, awake, alert. On questioning him, he denied any complaint. Nursing staff did not voice any concerns, stated that he had an uneventful night. PHYSICAL EXAMINATION: GENERAL: When I examined him, he looked well and was clearly in no apparent respiratory distress. No pallor, jaundice, cyanosis or thyromegaly. No jugular venous distention. No lower limb edema. VITAL SIGNS: His heart rate was 73, blood pressure is 135/66, temperature 96.6, respiratory rate was 16 and oxygen saturation was 96% on room air. Rest of clinical exam stable. His intake was 3000, output was 3500. LABORATORY DATA: Has no labs done for today. Yesterday, his serum sodium 138, potassium 3.6, chloride 105, bicarbonate 27, anion gap of 6, BUN 13, creatinine 0.9. Estimated GFR was 99 mL per minute. His glucose 171, calcium was 7.7. His blood sugar seems to be much better controlled. His blood culture has grown methicillin-resistant Staphylococcus aureus, sensitive to daptomycin and linezolid. ASSESSMENT: 1. Methicillin-resistant Staphylococcus aureus pneumonia. 2. Methicillin-resistant Staphylococcus aureus bacteremia. 3. Acute on chronic kidney injury, resolved. His serum creatinine is down to 0.9 mg/dL. 4. Hypernatremia, resolved. His most recent serum sodium is down to 138 from 158. 5. Benign prostatic hypertrophy with bladder outlet obstruction requiring indwelling Thurston catheter. 6. Hypothyroidism. 7. Hypertension. 8. Anemia of chronic kidney disease. 9. Type 2 diabetes mellitus. 10. Dementia without behavioral disturbances. PLAN: To continue with IV Zyvox and daptomycin. I have discontinued his amlodipine as blood pressure is much better now. We will continue to monitor his blood sugar and adjust insulin as needed. He will be discharged to [facility] once bed becomes available, he will need also transthoracic echocardiogram and perhaps even a transesophageal echocardiogram to rule out infective endocarditis. BÁRBARA/FRANSISCO HERNANDEZ: Flor TID: [id number]
[2021-09-07 15:39] VITALS: BP 143/63
[2021-09-07] MEDS: predniSONE 10 MG TABLET. PO SCH (16:11)
[2021-09-07 18:13] VITALS: BP 147/74
[2021-09-07 23:00] VITALS: BP 123/62
[2021-09-08] MEDS: LEVOTHYROXINE 88 MCG TABLET PO SCH (05:28)
[2021-09-08] MEDS: IPRATRPIUM/ALBUTEROL 0.5/2.5MG 3 ML NEBU. NEB SCH ×2 (05:42→11:27)
[2021-09-08 06:14] VITALS: BP 148/64
[2021-09-08 06:49] LABS: BASO # 0.1 x10^3/uL (0.0-0.2); BASO % 1 % (0-3); EOS # 0.1 x10^3/uL (0.0-0.7); EOS % 1 % (0-3); HEMATOCRIT 28.4 % (39.0-53.0); HEMOGLOBIN 9.2 g/dL (13.0-17.5); LYMPH % 28 % (24-48); MEAN CORPUSCULAR HEMOGLOBIN 27 pg (25-35); MEAN CORPUSCULAR HGB CONC 32 g/dL (31-37); MEAN CORPUSCULAR VOLUME 84 fL (79-100); MONO # 0.5 x10^3/uL (0.0-1.1); MONO % 5 % (0-9); NEUT % 65 % (31-73); PLATELET COUNT 198 x10^3/uL (140-400); RED BLOOD COUNT 3.38 x10^6/uL (4.30-5.70); RED CELL DISTRIBUTION WIDTH 16.4 % (11.5-14.5); WHITE BLOOD COUNT 10.7 x10^3/uL (4.0-11.0)
[2021-09-08 07:02] LABS: ALBUMIN 1.9 g/dL (3.4-5.0); ALBUMIN/GLOBULIN RATIO 0.5 (1.0-1.7); CALCIUM 7.8 mg/dL (8.5-10.1); CREATININE 0.9 mg/dL (0.7-1.3); POTASSIUM 3.7 mmol/L (3.5-5.1); TOTAL BILIRUBIN 0.2 mg/dL (0.2-1.0); TOTAL PROTEIN 5.5 g/dL (6.4-8.2)
[2021-09-08] MEDS: ASPIRIN CHEWABLE 81 MG TABLET. PO SCH (07:56)
[2021-09-08] MEDS: VITAMIN B COMPLEX CAPSULE. PO SCH (07:56)
[2021-09-08] MEDS: FERROUS SULFATE 325 MG TABLET. PO SCH (07:56)
[2021-09-08] MEDS: CYANOCOBALAMIN (VITAMIN B-12) 1,000 MCG TABLET. PO SCH (07:56)
[2021-09-08] MEDS: LACTOBACILLUS RHAMNOSUS GG 1 CAPSULE. PO SCH (07:56)
[2021-09-08] MEDS: MULTIVITAMIN with MINERAL TABLET. PO SCH (07:56)
[2021-09-08] MEDS: INSULIN LISPRO 300 UNITS/3 ML VIAL. SQ SCH (07:58)
[2021-09-08] MEDS: DAPTOmycin (GENERIC) IVPB 500 MG in IV NORMAL SALINE 50ML 50 ML IV SCH (08:15)
[2021-09-08 10:41] VITALS: BP 134/68
[2021-09-08] MEDS ORDERED: DAPT500V7 IV (12:14)
[2021-09-08] MEDS ORDERED: LINE600I IV (12:14)
--- NOTE | 2021-09-08 12:17 | DISCH ---
DISCHARGE ORDERS DISCHARGE DATE: Sep 08, 2021 FINAL DIAGNOSIS MRSA Bacteremia MRSA Pneumonia acute kidney injury hypernatremia CONDITION AT DISCHARGE: Stable Code Status: Full SNF STAY <30 DAYS: Yes POST DISCHARGE ORDERS: ACTIVITY ORDERS: Activity as tolerated DIET AFTER DISCHARGE: ADA DISCHARGE MEDICATIONS: Home Meds Active Scripts Daptomycin (CUBICIN) 500 Mg Vial, 500 MG IV DAILY PRN for cheduled for 38 Days, #38 EACH Prov:EAN COTE MD 09/08/21 Linezolid (ZYVOX) 600 Mg/300 Ml Iv.soln, 600 MG IV BID for mrsa pneumonia for 10 Days, #20 MISC 0 Refills Prov:EAN COTE MD 09/08/21 Reported Medications Lactobacillus Combo No.10 (PROBIOTIC) 1 Each Capsule, 1 EACH PO DAILY for [facility] for 13 Days, #13 CAP 08/29/21 Prednisone (PREDNISONE) 10 Mg Tablet, 10 MG PO DAILY16 for pna for 12 Days, #12 TAB 0 Refills Take 3 tablets by mouth once a day for 3 days (08/30/21), then take 2 tablets by mouth once a day for 3 days (09/02/21), then take 1 tablet by mouth once a day for 3 days (09/05/21), then take 0.5 tablet by mouth daily x 3 days (09/08/21), then stop. 08/29/21 Ipratropium/Albuterol Sulfate (DUONEB 0.5-3(2.5) MG/3 ML) 3 Ml Ampul.neb, 3 ML NEB QID for pna, EACH 08/29/21 Guaifenesin (MUCINEX) 600 Mg Tablet.er, 600 MG PO BID for pna for 3 Days, #6 TAB.SR 08/29/21 Buspirone Hcl (BUSPIRONE HCL) 5 Mg Tablet, 5 MG PO BID for mood, TAB 08/29/21 Aspirin (ASPIRIN) 81 Mg Tab.chew, 81 MG PO DAILY for heart health, TAB 08/29/21 Sertraline Hcl (SERTRALINE HCL) 25 Mg Tablet, 25 MG PO DAILY for ANTI- DEPRESSANT, TAB 0 Refills 08/29/21 Cyanocobalamin (Vitamin B-12) (B-12) 1,000 Mcg Tablet, 1 TAB PO DAILY for daily, TAB 0 Refills 08/29/21 Vitamin B Complex (B COMPLEX) 1 Each Tablet, 1 TAB PO DAILY for SUPPLEMENT for 30 Days, #30 TAB 0 Refills 09/19/20 Polyethylene Glycol 3350 (MIRALAX) 17 Gm Powd.pack, 1 PACKET PO DAILY for constipation, PACKET 0 Refills dissolve in water 09/19/20 Multivitamin (ONCE DAILY) 1 Each Tablet, 1 TAB PO DAILY for SUPPLEMENT for 30 Days, #30 TAB 0 Refills 09/19/20 Metformin Hcl (METFORMIN HCL) 500 Mg Tablet, 1.5 TAB PO DAILY for DM, #60 TAB 3 Refills 09/19/20 Metformin Hcl (METFORMIN HCL) 1,000 Mg Tablet, 1 TAB PO DAILYWSUP for DM, #180 TAB 3 Refills 09/19/20 Levothyroxine Sodium (LEVOTHYROXINE SODIUM) 88 Mcg Tablet, 1 TAB PO DAILY for HYPOTHYROIDISM, #30 TAB 5 Refills 09/19/20 Ferrous Sulfate (FERROUS SULFATE) 325 Mg Tablet, 1 TAB PO DAILY for SUPPLEMENTATION, #30 TAB 3 Refills 09/19/20 Acetaminophen (ACETAMINOPHEN) 325 Mg Tablet, 2 TAB PO PRN Q4HRS PRN for pain or fever for 30 Days, #30 TAB 0 Refills 09/19/20 Discontinued Reported Medications Doxycycline Hyclate (DOXYCYCLINE HYCLATE) 100 Mg Capsule, 100 MG PO BID for pna for 3 Days, CAP 08/29/21 Amoxicillin/Potassium Clav (AUGMENTIN 875-125 TABLET) 1 Each Tablet, 1 EACH PO BID for pna for 3 Days, TAB 08/29/21 Amlodipine Besylate (AMLODIPINE BESYLATE) 5 Mg Tablet, 1 TAB PO DAILY for HTN, #30 TAB 5 Refills 09/19/20 EAN COTE MD Sep 08, 2021 12:17
--- NOTE | 2021-09-08 21:47 | DS ---
DATE OF DISCHARGE: 09/08/2021 HOSPITAL COURSE: The patient is a 76-year-old male patient, resident at [facility], who was admitted through the Emergency Department to [facility] on 08/28/2021 with left lower lobe pneumonia, evidence of right-sided hydronephrosis and chronic kidney disease versus acute kidney disease. He was initially treated with Rocephin; however, his blood cultures have grown methicillin-resistant Staphylococcus aureus in 3/4 bottles. The bacteria was sensitive to clindamycin, daptomycin, and linezolid, and in consultation with Dr. Leach, I did start him on Zyvox 600 mg IV twice a day as well as daptomycin 500 mg daily for methicillin-resistant Staphylococcus aureus bacteremia. We also ordered an echocardiogram. Unfortunately, there is shortage on systems protection technician and that could not be done as an inpatient. We tried to transfer him to an intact facility, but they have no beds, and therefore, a decision was made to discharge him back to [facility] to continue on Zyvox for 10 more days and daptomycin for another 38 days. The instructions were conveyed to the supervising nurse there to check his BMP and CK twice a week and an arrangement was made for him to have an echocardiogram done as an outpatient at [facility] on 09/25/2021 at 8:45 p.m. PHYSICAL EXAMINATION: GENERAL: When I saw him today, he looked well and was clearly in no apparent respiratory distress. He was pale, not jaundiced, cyanosed. No lymphadenopathy, no thyromegaly, no jugular venous distention. No limb edema. VITAL SIGNS: Heart rate was 63, blood pressure was 134/68, temperature was 96.8, respiratory rate 20, and oxygen saturation was 98% on room air. His intake over the last 24 hours was 1000, output 2100. HEAD, EYES, EARS, NOSE AND THROAT: Normocephalic, atraumatic. NECK: Supple. HEART: Normal first and second heart sounds. No gallop, rub or murmur. CHEST: Clear to auscultation, no crepitation or rhonchi. ABDOMEN: Distended, soft, nontender. NEUROLOGIC: He is demented, but without any obvious lateralizing sign. He is mostly bedbound, wheelchair bound. He has an indwelling Thurston catheter. LABORATORY DATA: His white cell count was 10,000, hemoglobin 9, hematocrit 28, MCV 84 and platelet count of 198,000. Chemistry this morning showed a serum sodium of 138, potassium 3.7, chloride 104, bicarbonate 28, anion gap of 6, BUN 12, creatinine 0.9. Estimated GFR was 99 mL per minute. His glucose was 210, calcium was 7.8. Total bilirubin, AST, ALT, alkaline phosphatase were normal. His CK was 46. Total protein was 5.5, albumin was 1.9. His blood cultures has grown gram-positive cocci identified as methicillin-resistant Staphylococcus aureus in 3/4 bottles. The bacteria was sensitive to clindamycin, ciprofloxacin, ceftaroline, daptomycin and linezolid. The patient was treated with Zyvox 600 mg IV twice a day for MRSA pneumonia and started on daptomycin for MRSA bacteremia. DISCHARGE MEDICATIONS: The patient was discharged home to continue on the following medications: Daptomycin 500 mg IV for 38 days and Zyvox 600 mg IV twice a day for 10 days. He should continue on acetaminophen 650 mg every 4 hours, aspirin 81 mg once a day, buspirone 5 mg twice a day, cyanocobalamin 1000 mcg daily, ferrous sulfate 325 mg daily, Mucinex 600 mg twice a day, ipratropium bromide, albuterol sulfate 3 mL by nebulizer 4 times daily, lactobacillus combo 1 capsule once a day, levothyroxine sodium 88 mcg once a day, metformin 1000 mg daily with supper, metformin 1500 mg daily with breakfast, multivitamin 1 tablet once a day, polyethylene glycol 17 grams once a day, prednisone 10 mg once a day, sertraline 25 mg once a day and vitamin B complex one tablet once a day. FINAL DISCHARGE DIAGNOSES: 1. Methicillin-resistant Staphylococcus aureus pneumonia. 2. Methicillin-resistant Staphylococcus aureus bacteremia. 3. Izptj-dt-tgdrluo kidney injury, resolved. His serum creatinine is down to 0.9 mg/dL. 4. Hypernatremia, resolved. His serum sodium is down to 138 from 158. 5. Benign prostatic hypertrophy with bladder outlet obstruction requiring indwelling Thurston catheter. 6. Hypothyroidism. 7. Hypertension. 8. Anemia of chronic kidney disease. 9. Type 2 diabetes mellitus, reasonably controlled. 10. Dementia without behavioral disturbances. BÁRBARA/ANA/ARAVIND DR: BÁRBARA/jt TID: [id number]
== END 2021-09-08 13:10 | DRG 871 ==
LOC: ER 23:00 → 1 SOUTH 08-29 02:18
PROVIDERS: ADMIT Hospitalist; ATTEND Hospitalist
DX: A41.9 Sepsis, unspecified organism (principal); J15.212 Pneumonia due to Methicillin resistant Staphylococcus aureus; E87.0 Hyperosmolality and hypernatremia; G91.2 (Idiopathic) normal pressure hydrocephalus; I12.0 Hypertensive chronic kidney disease with stage 5 chronic kidney disease or end stage renal disease; N13.6 Pyonephrosis; N13.8 Other obstructive and reflux uropathy; N17.9 Acute kidney failure, unspecified; N18.5 Chronic kidney disease, stage 5; D33.2 Benign neoplasm of brain, unspecified; D63.1 Anemia in chronic kidney disease; E03.9 Hypothyroidism, unspecified; E11.65 Type 2 diabetes mellitus with hyperglycemia; E11.22 Type 2 diabetes mellitus with diabetic chronic kidney disease; E86.0 Dehydration; E87.8 Other disorders of electrolyte and fluid balance, not elsewhere classified; F02.80 Dementia in other diseases classified elsewhere, unspecified severity, without behavioral disturbance, psychotic disturbance, mood disturbance, and anxiety; G30.9 Alzheimer's disease, unspecified; N40.1 Benign prostatic hyperplasia with lower urinary tract symptoms; L89.159 Pressure ulcer of sacral region, unspecified stage; Z66 Do not resuscitate; Z74.01 Bed confinement status; Z79.4 Long term (current) use of insulin; Z86.011 Personal history of benign neoplasm of the brain; Z98.2 Presence of cerebrospinal fluid drainage device; F32.A Depression, unspecified; F41.9 Anxiety disorder, unspecified; Z20.822 Contact with and (suspected) exposure to COVID-19
CPT/HCPCS: 36415; 36569; 70450; 71045; 71250; 74176; 80048; 80053; 81001; 82550; 82803; 82947; 83605; 84484; 85007; 85025; 85027; 87040; 87077; 87086; 87186; 87205; 87426; 93005; 94640; 96361; 96365; J0696; J0878; J1815; J2020; J7120; J7512; U0003; 92610; 99285-25; J7030

== ENCOUNTER 2022-01-05 21:11 | Inpatient (IN) | payer MEDICARE, MEDICAID ==
[~2022-01-05] VITALS: Ht 170.2 cm; Wt 94.9 kg
[~2022-01-05 21:11] MED LIST changes: +AMOX1TAB61 PO; +ASPI-630 PO; +CEFD300C PO; +CYAN100072 PO; +DAPT500V7 IV; +DOXY100C3 PO; +GUAI600T47 PO; +HYDR-2155 PO; +IPRA3AMP29 NEB; +LACT1CAP37 PO; +LINE600I IV; +MAGN24003 PO; +PRED-220 PO; +SERT-267 PO
--- NOTE | 2022-01-05 21:25 | PHYS DOC ---
Past History Past Medical History: Anemia, Anxiety, Dementia, Depression, Diabetes, Hypertension, Hypothyroid, Pneumonia, Other Additional Past Medical Histor: BENIGN NEOPLASM OF BRAIN; COVID POSITIVE 09-09-20, Alzheimers Past Surgical History: Other Additional Past Surgical Histo: unknown Alcohol Use: None General Adult EDM: Chief Complaint: FEVER HPI: HPI: 76-year-old male presents with fever and decreased responsiveness at his care facility. The patient does not answer my questions so the history comes from EMS and assisted reports. He was reported to have a fever today and seemed like he was having labored breathing. Patient has had UTI sepsis multiple times in the past. He has a chronic catheter. No other history is available at this time. Review of Systems: Review of Systems: Unable to evaluate due to patient not answering questions Allergies: Allergies: Allergies Coded Allergies Type Severity Reaction Last Updated Verified I S O L A T I O N *CONTACT* Allergy Unknown 09/02/21 Yes NKMA Allergy Unknown 09/02/21 Yes Physical Exam: PE: Constitutional: Well developed, well nourished, obese, no acute distress, non- toxic appearance. [] HENT: Normocephalic, atraumatic, bilateral external ears normal, oropharynx moist, no oral exudates, nose normal. [] Eyes: PERRLA, EOMI, conjunctiva normal, no discharge. [] Neck: Normal range of motion, no tenderness, supple, no stridor. [] Cardiovascular: Heart rate 90, regular rhythm, no murmur [] Lungs & Thorax: Bilateral breath sounds diminished. [] Abdomen: Bowel sounds normal, soft, no tenderness, no masses, no pulsatile masses. Thurston catheter in place. [] Skin: Warm, dry, no erythema, no rash. [] Back: No tenderness, no CVA tenderness. [] Extremities: No tenderness, no cyanosis, no clubbing, ROM intact, no edema. [] Neurologic: alert, responds to verbal stimuli, normal motor function, normal sensory function, no focal deficits noted. [] Psychologic: Affect not talking. [] Current Patient Data: Vital Signs: Vital Signs Date Time Temp Pulse Resp B/P (MAP) Pulse Ox O2 Delivery O2 Flow Rate FiO2 01/05/22 21:11 90 24 142/70 (94) 99 Nasal Cannula 4.0 EKG: EKG: Sinus rhythm, rate 87, leftward axis, no ST elevation or depression. [] Radiology/Procedures: Radiology/Procedures: [] Heart Score: C/O Chest Pain: N/A Risk Factors: Risk Factors: DM, Current or recent (<one month) smoker, HTN, HLP, family history of CAD, obesity. Risk Scores: Score 0 - 3: 2.5% MACE over next 6 weeks - Discharge Home Score 4 - 6: 20.3% MACE over next 6 weeks - Admit for Clinical Observation Score 7 - 10: 72.7% MACE over next 6 weeks - Early Invasive Strategies Course & Med Decision Making: Course & Med Decision Making Pertinent Labs and Imaging studies reviewed. (See chart for details) The patient has significant elevated white count. See labs for more details and other abnormal values. His chest x-ray suggestive of pneumonia. I will treat him with vancomycin and Zosyn due to likelihood of healthcare associated pneumonia. Spoke with Dr. Fleming the hospitalist and he has accepted the patient for admission. [] Dragon Disclaimer: Dragon Disclaimer: This electronic medical record was generated, in whole or in part, using a voice recognition dictation system. Departure Departure: Impression: Primary Impression: Pneumonia Disposition: ADMITTED INPATIENT Admitting Physician: Milan Fleming Condition: STABLE Referrals: DERRICK SU MD (PCP) ANDRIA PENA DO Jan 05, 2022 21:25
--- NOTE | 2022-01-05 21:26 | EKG ---
[address] [address] Test Date: 2022-01-05 Test Time: 21:18:36 Pat Name: CHARLIE MORRIS Department: Room: Gender: M Ophthalmic Pathologist: GUSTAVO : 1945 Requested By: ANDRIA PEAN Order Number: [id number] Reading MD: Measurements Intervals Young Rate: 90 P: 0 CT: 146 QRS: -11 QRSD: 78 T: 5 QT: 370 QTc: 457 Interpretive Statements SINUS RHYTHM LEFTWARD AXIS OTHERWISE NORMAL ECG RI6.02 No previous ECG available for comparison
[2022-01-05 21:42] LABS: BASO # 0.1 x10^3/uL (0.0-0.2); BASO % 1 % (0-3); EOS % 0 % (0-3); HEMOGLOBIN 8.1 g/dL (13.0-17.5); LYMPH # 2.7 x10^3/uL (1.0-4.8); LYMPH % 14 % (24-48); MEAN CORPUSCULAR HEMOGLOBIN 23 pg (25-35); MEAN CORPUSCULAR HGB CONC 30 g/dL (31-37); MEAN CORPUSCULAR VOLUME 76 fL (79-100); MONO # 0.5 x10^3/uL (0.0-1.1); MONO % 3 % (0-9); NEUT # 16.3 x10^3uL (1.8-7.7); NEUT % 83 % (31-73); PLATELET COUNT 345 x10^3/uL (140-400); RED BLOOD COUNT 3.57 x10^6/uL (4.30-5.70); RED CELL DISTRIBUTION WIDTH 19.8 % (11.5-14.5); WHITE BLOOD COUNT 19.6 x10^3/uL (4.0-11.0)
[2022-01-05] MEDS ORDERED: IV NORMAL SALINE 1,000ML 1,000 ML IV ONE (21:45)
[2022-01-05 22:03] LABS: % BANDS 2 % (0-9); % LYMPHS 9 % (24-48); % MONOS 4 % (0-10); % SEGS 85 % (35-66); PLT ESTIMATE ADEQUATE (ADEQUATE)
[2022-01-05 22:04] LABS: ANISOCYTOSIS SLIGHT; HYPOCHROMIA MOD
[2022-01-05 22:07] LABS: CLARITY,URINE CLOUDY; COLOR,URINE YELLOW
[2022-01-05 22:08] LABS: BACTERIA,URINE MOD /HPF (0-FEW); GLUCOSE,URINE NEG (NEG); NITRITE,URINE NEG (NEG); RBC,URINE TNTC /HPF (0-2); SQUAMOUS EPITHELIAL CELL,UR FEW /LPF; UROBILINOGEN,URINE 0.2 mg/dL (0.2 mg/dL); WBC,URINE 20-40 /HPF (0-4)
[2022-01-05] MEDS ORDERED: PIPERACILLIN/TAZOBACTAM 3.375 GM in IV NORMAL SALINE 50ML 50 ML IV ONE (22:15)
[2022-01-05] MEDS ORDERED: VANCOMYCIN PER PHARMACY MC PRN (22:15)
[2022-01-05 22:20] LABS: INFLUENZA A PATIENT NEGATIVE (NEGATIVE); INFLUENZA B PATIENT NEGATIVE (NEGATIVE)
[2022-01-05] MEDS ORDERED: IV NORMAL SALINE 50ML 50 ML ONE (22:24)
[2022-01-05] MEDS ORDERED: PIPERACILLIN/TAZOBACTAM 3.375 GM VIAL IV ONE (22:24)
[2022-01-05] MEDS ORDERED: VANCOMYCIN 1 GM VIAL. ONE ×2 (22:24→22:34)
[2022-01-05] MEDS ORDERED: IV NORMAL SALINE 500ML 500 ML ONE (22:24)
[2022-01-05] MEDS ORDERED: VANCOMYCIN 2 GM in IV NORMAL SALINE 500ML 500 ML IV ONE (22:30)
[2022-01-05 22:38] LABS: CALCIUM 8.5 mg/dL (8.5-10.1); CREATININE 1.9 mg/dL (0.7-1.3); GFR 41.8; POTASSIUM 3.6 mmol/L (3.5-5.1)
[2022-01-05 22:43] LABS: ALBUMIN 2.1 g/dL (3.4-5.0); ALBUMIN/GLOBULIN RATIO 0.4 (1.0-1.7); TOTAL BILIRUBIN 0.4 mg/dL (0.2-1.0); TOTAL PROTEIN 6.8 g/dL (6.4-8.2)
--- NOTE | 2022-01-05 22:59 | RAD ---
EXAM: AP View of the chest DATE: 01/05/2022 9:30 PM INDICATION: Reason: fever / Spl. Instructions: / History: COMPARISON: 09/02/2021 FINDINGS: Catheter tubing projects over the right neck and chest, in general grossly intact. Cardiomediastinal silhouette is stable. New airspace opacities are seen in the left mid lung and left lower lung likely consolidative process such as pneumonia. No pleural effusion or pneumothorax. IMPRESSION: New airspace opacities are seen in the left mid lung and left lower lung likely consolidative process such as pneumonia. Electronically signed by: Edwin Fernández MD (01/05/2022 10:57 PM) MARY
[2022-01-05] MEDS ORDERED: ONDANSETRON PF 4 MG/2 ML VIAL. IVP PRN (23:15)
[2022-01-05] MEDS ORDERED: ACETAMINOPHEN 325 MG TABLET PO PRN (23:15)
[2022-01-06 00:50] VITALS: BP 119/65
[2022-01-06] MEDS ORDERED: AMOX1TAB11 PO (02:23)
[2022-01-06] MEDS ORDERED: ONDA4TAB12 PO (02:23)
[2022-01-06] MEDS ORDERED: ASCO500C PO (02:23)
[2022-01-06 06:19] VITALS: BP 115/63
--- NOTE | 2022-01-06 09:39 | HP ---
DATE OF SERVICE: 01/06/2022 ADMIT DATE: 01/05/2022 ATTENDING PHYSICIAN: Dr. Fleming. CHIEF COMPLAINT: Altered mentation. HISTORY OF PRESENT ILLNESS: The patient is a 76-year-old gentleman, alf resident, admitted through the ED with confusion and decreased mentation. He has underlying dementia. He has chronic medical issues. The workup in the ED showed evidence of urinary tract infection, possible systemic inflammatory response syndrome. His x-ray was a poor inspiratory effort. He is a DNR per advanced directive. Cultures have been sent. He was started on vancomycin and Zosyn in the ED. PAST MEDICAL HISTORY: Significant for dementia, [id number] respiratory failure, restrictive lung disease, frequent UTIs, chronic anemia, bladder cancer. ALLERGIES: He has no known drug allergies. CURRENT MEDICATIONS: Reviewed, include the following: He has been on scheduled albuterol, Augmentin, ascorbic acid, BuSpar, ferrous sulfate, Synthroid, ondansetron, Zoloft, and vitamin B. SOCIAL HISTORY: He was a smoker in the past. FAMILY HISTORY: Unobtainable. REVIEW OF SYSTEMS: Unobtainable. PHYSICAL EXAMINATION: GENERAL: When I saw him, this is a pleasant, confused elderly gentleman. He was not in any acute respiratory distress. VITAL SIGNS: Initial vital signs showed a blood pressure 119/65 mmHg. He was afebrile, oxygen saturation 100% on 2 liters by nasal cannula. HEENT: Head is without trauma. Pupils are reactive. Sclerae nonicteric. Oropharynx clear. NECK: Supple, no bruits. LUNGS: Shallow respirations. CARDIOVASCULAR: Distant heart tones. ABDOMEN: Soft. EXTREMITIES: Show no cyanosis or edema. NEUROLOGIC: Pleasantly confused. He is bedridden. He responds to some questions. PERTINENT LABORATORY AND X-RAY STUDIES: Chest x-ray as noted. Poor inspiratory effort with elevation of left hemidiaphragm, which is chronic. Admission hemoglobin was 8.1 g/dL, white count 19,600. Electrolytes within normal range. Creatinine is 1.9 mg/dL with a BUN of 29. Nonfasting blood sugar 178. ASSESSMENT: 1. A 76-year-old gentleman with a urinary tract infection. 2. Systemic inflammatory response syndrome. 3. Chronic anemia. Hemoglobin currently is 8.1 grams. 4. History of brain tumor. 5. Type 2 diabetes. 6. Essential hypertension. 7. Dementia. 8. Generalized debilitation. 9. Hypothyroidism. 10. Chronic kidney disease stage IV. PLAN: 1. Continue antibiotics as ordered. 2. Serial chemistries. 3. He is a DNR per advanced directives. 4. Some home meds continued. JIM/STACI DR: JIM/jt TID: [id number]
[2022-01-06 10:28] VITALS: BP 125/55
[2022-01-06] MEDS: PIPERACILLIN/TAZOBACTAM 3.375 GM in IV NORMAL SALINE 50ML 50 ML IV SCH ×2 (14:31→20:50)
[2022-01-06 15:46] VITALS: BP 131/69
[2022-01-06] MEDS: LACTOBACILLUS RHAMNOSUS GG 1 CAPSULE. PO SCH (20:50)
[2022-01-06] MEDS: busPIRone 5 MG TABLET. PO SCH (20:50)
[2022-01-06 20:54] VITALS: BP 114/61
[2022-01-06] MEDS: VANCOMYCIN 1.25 GM in IV NORMAL SALINE 250ML 250 ML IV SCH (22:02)
[2022-01-06 23:35] VITALS: BP 98/57
[2022-01-07] MEDS: PIPERACILLIN/TAZOBACTAM 3.375 GM in IV NORMAL SALINE 50ML 50 ML IV SCH ×4 (03:29→20:31)
[2022-01-07] MEDS: LEVOTHYROXINE 88 MCG TABLET PO SCH (05:19)
[2022-01-07 07:22] VITALS: BP 123/61
[2022-01-07] MEDS: busPIRone 5 MG TABLET. PO SCH ×2 (08:27→20:31)
[2022-01-07] MEDS: LACTOBACILLUS RHAMNOSUS GG 1 CAPSULE. PO SCH ×2 (08:27→20:31)
[2022-01-07 11:30] VITALS: BP 130/69
[2022-01-07] MEDS ORDERED: ACETAMINOPHEN 325 MG TABLET PO PRN (12:00)
[2022-01-07] MEDS ORDERED: ONDANSETRON ODT 4 MG TAB.RAPDIS PO PRN (12:00)
[2022-01-07] MEDS: IV DEXTROSE 5 %-0.2 % NACL 1,000 ML IV SCH ×2 (12:06→22:33)
[2022-01-07] MEDS: IPRATRPIUM/ALBUTEROL 0.5/2.5MG 3 ML NEBU. NEB SCH ×3 (12:08→19:28)
[2022-01-07] MEDS ORDERED: VITS A & D/LANOLIN TOPICAL OINTMENT 42GM TUBE. TP PRN (13:00)
[2022-01-07 15:23] VITALS: BP 141/80
[2022-01-07 19:53] VITALS: BP 127/62
[2022-01-07] MEDS: FERROUS SULFATE 325 MG TABLET. PO SCH (20:31)
[2022-01-07] MEDS: ASCORBIC ACID 500 MG TABLET PO SCH (20:31)
[2022-01-07 22:24] LABS: VANC TR 19.3 mcg/mL (10.0-20.0)
[2022-01-07] MEDS: VANCOMYCIN 1.25 GM in IV NORMAL SALINE 250ML 250 ML IV SCH (22:34)
[2022-01-08] VITALS (8 sets, daily range): BP systolic 123–152; BP diastolic 62–97
--- NOTE | 2022-01-08 00:22 | PN ---
DATE: 01/07/2022 SUBJECTIVE: The patient is resting, slightly propped up in bed, in no apparent respiratory distress. He was somewhat lethargic, but arousable. On questioning him, he denied any chest pain or shortness of breath. He did continue to complain of cough that is mostly dry. PHYSICAL EXAMINATION: GENERAL: When I examined him, he was pale, not jaundiced, cyanosed, no lymphadenopathy, no thyromegaly, no jugular venous distention, no lower limb edema. VITAL SIGNS: His heart rate was 65, blood pressure was 130/69, temperature was 97.4, respiratory rate was 18 and oxygen saturation was 98% on room air. HEAD, EYES, EARS, NOSE, AND THROAT: Normocephalic, atraumatic. NECK: Supple. HEART: Showed normal first and second heart sounds. No gallop, rub or murmur. CHEST: Shows central trachea, equal bilateral expansion, air entry, vesicular breath sounds with bilateral crepitation posteriorly. I could not appreciate any rhonchi. ABDOMEN: Distended, soft, nontender. NEUROLOGIC: He was sleepy, but arousable. All cranial nerves intact. He moves upper extremities without difficulty and is mostly bedbound. He has an indwelling Thurston catheter. His intake was 1900, output was 200. LABORATORY DATA: As of yesterday, his most recent white cell count was 19.6, hemoglobin 8.1, hematocrit 27, MCV 76 and platelet count 345,000. His chemistry showed a serum sodium 145, potassium 3.6, chloride 107, bicarbonate 29, anion gap of 9, BUN 29, creatinine was 1.9. Estimated GFR was 42 mL per minute. His glucose 178. Lactic acid was 1.3, calcium was 8.5. Total bilirubin, AST, ALT, alkaline phosphatase were normal. Total protein 6.8, albumin 2.1. ASSESSMENT: 1. Healthcare-associated pneumonia. 2. Polymicrobial urinary tract infection, indicating contamination or colonization. 3. Microcytic hypochromic anemia. 4. Benign prostatic hypertrophy with bladder outlet obstruction. 5. Bladder cancer. 6. Hypertension. 7. Type 2 diabetes mellitus. 8. Hypothyroidism. 9. History of brain tumor. 10. Acute on chronic kidney injury. PLAN: My plan is to continue with IV antibiotic in the form of Zosyn and vancomycin. I reconciled all his medication. I will start him also on IV fluid in the form of D5 half normal saline. KALEIGH DR: Flor TID: [id number]
[2022-01-08] MEDS: PIPERACILLIN/TAZOBACTAM 3.375 GM in IV NORMAL SALINE 50ML 50 ML IV SCH ×4 (03:00→21:04)
[2022-01-08] MEDS: LEVOTHYROXINE 88 MCG TABLET PO SCH (05:34)
[2022-01-08] MEDS: IPRATRPIUM/ALBUTEROL 0.5/2.5MG 3 ML NEBU. NEB SCH ×4 (05:34→18:54)
[2022-01-08 06:11] LABS: BASO % 0 % (0-3); EOS # 0.3 x10^3/uL (0.0-0.7); EOS % 3 % (0-3); HEMATOCRIT 20.9 % (39.0-53.0); LYMPH # 2.7 x10^3/uL (1.0-4.8); LYMPH % 28 % (24-48); MEAN CORPUSCULAR HEMOGLOBIN 23 pg (25-35); MEAN CORPUSCULAR HGB CONC 31 g/dL (31-37); MEAN CORPUSCULAR VOLUME 74 fL (79-100); MONO # 0.6 x10^3/uL (0.0-1.1); MONO % 6 % (0-9); NEUT # 6.3 x10^3uL (1.8-7.7); NEUT % 64 % (31-73); PLATELET COUNT 275 x10^3/uL (140-400); RED BLOOD COUNT 2.83 x10^6/uL (4.30-5.70); RED CELL DISTRIBUTION WIDTH 19.5 % (11.5-14.5); WHITE BLOOD COUNT 9.9 x10^3/uL (4.0-11.0)
[2022-01-08 06:40] LABS: ALBUMIN 1.7 g/dL (3.4-5.0); ALBUMIN/GLOBULIN RATIO 0.5 (1.0-1.7); CALCIUM 7.7 mg/dL (8.5-10.1); CREATININE 1.7 mg/dL (0.7-1.3); GFR 47.5; POTASSIUM 3.4 mmol/L (3.5-5.1); TOTAL BILIRUBIN 0.2 mg/dL (0.2-1.0); TOTAL PROTEIN 5.3 g/dL (6.4-8.2)
[2022-01-08 07:06] LABS: HEMOGLOBIN 6.5 g/dL (13.0-17.5)
[2022-01-08] MEDS: IV DEXTROSE 5 %-0.2 % NACL 1,000 ML IV SCH ×2 (08:00→18:00)
[2022-01-08 08:01] LABS: HYPOCHROMIA PRESENT
[2022-01-08 08:03] LABS: ANISOCYTOSIS PRESENT; MICROCYTOSIS PRESENT
[2022-01-08 08:04] LABS: BURR CELLS PRESENT
[2022-01-08 08:05] LABS: SCHISTOCYTES FEW; TARGET CELLS PRESENT
[2022-01-08 08:06] LABS: TEAR DROP CELLS PRESENT
[2022-01-08 08:07] LABS: OVALOCYTES PRESENT
[2022-01-08 08:13] LABS: PLT ESTIMATE ADEQUATE (ADEQUATE)
[2022-01-08] MEDS ORDERED: LACTOBACILLUS COMBO NO 10 PO SCH (09:00)
[2022-01-08] MEDS: busPIRone 5 MG TABLET. PO SCH ×2 (10:20→21:04)
[2022-01-08] MEDS: LACTOBACILLUS RHAMNOSUS GG 1 CAPSULE. PO SCH ×2 (10:20→21:04)
[2022-01-08] MEDS: VITAMIN B COMPLEX CAPSULE. PO SCH (10:21)
[2022-01-08] MEDS: ASCORBIC ACID 500 MG TABLET PO SCH ×2 (10:21→21:04)
[2022-01-08] MEDS: FERROUS SULFATE 325 MG TABLET. PO SCH ×2 (10:21→21:04)
[2022-01-08] MEDS: SERTRALINE 25 MG TABLET. PO SCH (10:21)
[2022-01-08] MEDS ORDERED: diphenhydrAMINE HCL 25 MG CAPSULE PO PRN (11:30)
[2022-01-08] MEDS ORDERED: ACETAMINOPHEN 325 MG TABLET PO PRN (11:30)
[2022-01-08] MEDS ORDERED: diphenhydrAMINE ORAL ELIXIR 12.5 MG/5 ML ML PO PRN (11:30)
[2022-01-08] MEDS: VANCOMYCIN 1.25 GM in IV NORMAL SALINE 250ML 250 ML IV SCH (22:16)
--- NOTE | 2022-01-09 02:19 | PN ---
DATE: 01/08/2022 SUBJECTIVE: The patient is resting, slightly propped up in bed, in no apparent distress. He is definitely more awake, alert. On questioning him, denied any complaint. The nursing staff stated he continued to have hematuria. His H and H has dropped down to 6.5 and 20.9 and arrangement was made for him to have 1 unit of packed RBCs. I did order also his serum iron, TIBC and serum ferritin as his MCV is only 74 and these lab results are still pending at the time of this dictation. PHYSICAL EXAMINATION: GENERAL: When I examined him, he was pale, but no jaundice, cyanosis, no lymphadenopathy, no thyromegaly, no jugular venous distention. No limb edema. VITAL SIGNS: Her heart rate was 60, blood pressure was 123/62, temperature was 96.8, respiratory rate was 18 and oxygen saturation was 96%. HEAD, EYES, EARS, NOSE, AND THROAT: Normocephalic, atraumatic. NECK: Supple. HEART: Showed normal first and second heart sounds. No gallop, rub or murmur. CHEST: Clear to auscultation, no crepitation or rhonchi. ABDOMEN: Scaphoid, soft, nontender. NEUROLOGIC: He is awake, alert, responding appropriately. Cranial nerves intact. He moves upper extremities without difficulty, is mostly bedbound, wheelchair bound. He has an indwelling Thurston catheter. His intake was 1900, output was 350. LABORATORY DATA: His white cell count was 9.9, hemoglobin was 6.5, hematocrit 21, MCV 74 and platelet count 275,000 with normal manual differential. His chemistry showed a serum sodium 138, potassium 3.4, chloride 102, bicarbonate 26, anion gap of 10, BUN 27, creatinine was 1.7. Estimated GFR was 47 mL per minute. His glucose 126, calcium was 7.7. Total bilirubin, AST, ALT, alkaline phosphatase were normal. Total protein was 5.3, albumin was 1.7. ASSESSMENT: 1. Healthcare-associated pneumonia. 2. Polymicrobial urinary tract infection, indicating contamination versus colonization. 3. Microcytic hypochromic anemia. His hemoglobin and hematocrit has dropped down to 6.5 and 20. 4. Benign prostatic hypertrophy with bladder outlet obstruction. 5. Bladder cancer. 6. Hypertension. 7. Type 2 diabetes mellitus. 8. Hypothyroidism. 9. History of brain tumor. 10. Acute-on chronic kidney injury. 11. Bilateral hydronephrosis. PLAN: To continue with IV antibiotic in the form of Zosyn and vancomycin. Continue with IV fluid, transfuse 1 unit of packed RBCs. We will probably give him Venofer IV to replenish his iron stores. BÁRBARA/LOUIS DR: Flor TID: [id number]
[2022-01-09] MEDS: PIPERACILLIN/TAZOBACTAM 3.375 GM in IV NORMAL SALINE 50ML 50 ML IV SCH ×4 (03:24→20:22)
[2022-01-09] MEDS: IPRATRPIUM/ALBUTEROL 0.5/2.5MG 3 ML NEBU. NEB SCH ×4 (04:49→21:09)
[2022-01-09] MEDS: LEVOTHYROXINE 88 MCG TABLET PO SCH (05:51)
[2022-01-09 07:47] LABS: HEMATOCRIT 24.3 % (39.0-53.0); HEMOGLOBIN 7.8 g/dL (13.0-17.5); RED BLOOD COUNT 3.25 x10^6/uL (4.30-5.70); RED CELL DISTRIBUTION WIDTH 20.4 % (11.5-14.5); WHITE BLOOD COUNT 10.1 x10^3/uL (4.0-11.0)
[2022-01-09 07:50] VITALS: BP 130/55
[2022-01-09] MEDS: FERROUS SULFATE 325 MG TABLET. PO SCH ×2 (08:27→20:22)
[2022-01-09] MEDS: ASCORBIC ACID 500 MG TABLET PO SCH ×2 (08:27→20:22)
[2022-01-09] MEDS: VITAMIN B COMPLEX CAPSULE. PO SCH (08:27)
[2022-01-09] MEDS: busPIRone 5 MG TABLET. PO SCH ×2 (08:27→20:22)
[2022-01-09] MEDS: LACTOBACILLUS RHAMNOSUS GG 1 CAPSULE. PO SCH ×2 (08:28→20:22)
[2022-01-09] MEDS: SERTRALINE 25 MG TABLET. PO SCH (08:28)
[2022-01-09] MEDS: IV DEXTROSE 5 %-0.2 % NACL 1,000 ML IV SCH ×2 (08:37→20:22)
[2022-01-09 11:05] VITALS: BP 152/65
[2022-01-09 12:30] LABS: ALBUMIN 1.7 g/dL (3.4-5.0); ALBUMIN/GLOBULIN RATIO 0.5 (1.0-1.7); CALCIUM 7.8 mg/dL (8.5-10.1); CREATININE 1.8 mg/dL (0.7-1.3); GFR 44.5; POTASSIUM 3.7 mmol/L (3.5-5.1); TOTAL BILIRUBIN 0.3 mg/dL (0.2-1.0); TOTAL PROTEIN 5.1 g/dL (6.4-8.2)
--- NOTE | 2022-01-09 13:14 | RAD ---
EXAMINATION: US DPLX VENOUS EXTREMITY LOWER LT (LOWER EXTREMITY VENOUS ULTRASOUND) CLINICAL HISTORY: Left lower extremity edema. TECHNIQUE: Sonographic grayscale images obtained of the left lower extremity deep venous system with color flow Doppler, compression, and augmentation techniques as indicated. Images obtained and store d in a permanent archive. COMPARISON: None FINDINGS: Nonocclusive thrombus in the common femoral vein, femoral vein, and popliteal vein. Visualized calf v eins appear patent on limited evaluation. IMPRESSION: Nonocclusive DVT in the left common femoral, femoral, and popliteal veins. Scientific Aide discussed findings with patient's nurse immediately following the exam. Electronically signed by: Andreas Adame DO (01/09/2022 1:11 PM) [id number]
[2022-01-09 15:02] VITALS: BP 147/64
[2022-01-09 19:52] VITALS: BP 151/71
[2022-01-09 22:17] LABS: VANC TR 22.4 mcg/mL (10.0-20.0)
[2022-01-09 23:09] VITALS: BP 141/83
[2022-01-10] MEDS: PIPERACILLIN/TAZOBACTAM 3.375 GM in IV NORMAL SALINE 50ML 50 ML IV SCH ×4 (03:32→21:30)
[2022-01-10] MEDS: LEVOTHYROXINE 88 MCG TABLET PO SCH (05:07)
[2022-01-10] MEDS: IPRATRPIUM/ALBUTEROL 0.5/2.5MG 3 ML NEBU. NEB SCH ×4 (05:16→20:28)
[2022-01-10 06:25] VITALS: BP 137/67
--- NOTE | 2022-01-10 08:35 | PN ---
DATE: 01/09/2022 SUBJECTIVE: The patient is resting, slightly propped up in bed, in no apparent distress, sleepy, but arousable. On questioning him, he denied any complaint. The nursing staff noted that his left lower extremity is more swollen than the right. The patient himself denied any cough, phlegm or hemoptysis. Denied any chest pain or shortness of breath. PHYSICAL EXAMINATION: GENERAL: When I examined him, he looked pale. No jaundice, cyanosis or thyromegaly. No jugular venous distention. No limb edema. VITAL SIGNS: His heart rate was 61, blood pressure was 152/67, temperature was 98.2, respiratory rate was 20 and oxygen saturation was 98%. HEAD, EYES, EARS, NOSE, AND THROAT: Normocephalic, atraumatic. NECK: Supple. HEART: Showed normal first and second heart sounds. No gallop or murmur. CHEST: Clear to auscultation, no crepitation or rhonchi. ABDOMEN: Distended, soft, nontender. NEUROLOGIC: He is sleepy, but arousable. All cranial nerves intact. He moves upper extremities without difficulty. He is mostly bedbound. He has an indwelling Thurston catheter. He has wounds on his back. His intake over the last 24 hours was 2620, output was 1175. LABORATORY DATA: This morning showed a white cell count of 10,000, hemoglobin 7.8, hematocrit 24, MCV 75 and platelet count of 301,000. His chemistry this morning showed a serum sodium 138, potassium 3.7, chloride 104, bicarbonate 25, anion gap of 9, BUN 19, creatinine 1.8. Estimated GFR was 44 mL per minute. His glucose 178, calcium was 7.8. Serum iron was 13, TIBC was 170, iron saturation was less than 8%. Serum ferritin was 98. Total bilirubin, AST, ALT, alkaline phosphatase were normal. His total protein 5.1, albumin was 1.7. His urine culture showed growth of 3 or more organisms isolated results consistent with colonization or contamination. His blood cultures are so far negative. PLAN: My plan is to discontinue the vancomycin. Continue with Zosyn. Await the results of the ultrasound. We will repeat all his lab work again tomorrow and if his H and H remained stable, we can switch him to perhaps oral antibiotic and he can go back to [facility]. ROOPA DR: Flor TID: [id number]
[2022-01-10] MEDS: LACTOBACILLUS RHAMNOSUS GG 1 CAPSULE. PO SCH ×2 (08:38→21:29)
[2022-01-10] MEDS: busPIRone 5 MG TABLET. PO SCH ×2 (08:38→21:29)
[2022-01-10] MEDS: SERTRALINE 25 MG TABLET. PO SCH (08:38)
[2022-01-10] MEDS: ASCORBIC ACID 500 MG TABLET PO SCH ×2 (08:38→21:29)
[2022-01-10] MEDS: VITAMIN B COMPLEX CAPSULE. PO SCH (08:39)
[2022-01-10] MEDS: FERROUS SULFATE 325 MG TABLET. PO SCH ×2 (08:39→21:29)
[2022-01-10] MEDS: IV DEXTROSE 5 %-0.2 % NACL 1,000 ML IV SCH ×4 (10:17→21:29)
[2022-01-10 10:55] VITALS: BP 159/68
[2022-01-10 12:37] LABS: CREATININE 1.8 mg/dL (0.7-1.3); GFR 44.5; POTASSIUM 3.7 mmol/L (3.5-5.1)
[2022-01-10 15:25] VITALS: BP 156/70
[2022-01-10 19:00] VITALS: BP 138/80
[2022-01-10 23:00] VITALS: BP 138/67
--- NOTE | 2022-01-11 02:24 | PN ---
DATE: 01/10/2022 SUBJECTIVE: The patient is resting, slightly propped up in bed, in no apparent respiratory distress. He continued to have hematuria and he did receive 1 unit of packed RBCs. His hemoglobin has risen from 6.5 to 7.8, this morning was 7.5. PHYSICAL EXAMINATION: GENERAL: When I examined him, he looked pale, not jaundiced or cyanosed, no lymphadenopathy, no thyromegaly, no jugular venous distention. No lower limb edema. VITAL SIGNS: His heart rate was 69, blood pressure 159/68, temperature was 98.3, respiratory rate 20, and oxygen saturation was 93%. HEAD, EYES, EARS, NOSE, AND THROAT: Normocephalic, atraumatic. NECK: Supple. HEART: Normal first and second heart sounds. No gallop or murmur. CHEST: Shows central trachea, equal bilateral expansion, air entry, vesicular breath sounds with basal crepitation mostly on the left side posteriorly and very few scattered rhonchi. ABDOMEN: Distended, soft, nontender, no guarding or rigidity. No organomegaly. All hernial orifice intact. Bowel sounds normal. NEUROLOGIC: He is awake, alert, responding appropriately. All cranial nerves intact. He moves upper extremities without difficulty. He is mostly bedbound, chair bound. He has an indwelling Thurston catheter. His intake was 1450, output was 2100. LABORATORY DATA: As of this morning, his hemoglobin was 7.5. BMP showed a serum sodium 141, potassium 3.7, chloride 107, bicarbonate 24, anion gap of 10, BUN 23, creatinine 1.8. Estimated GFR was 44 mL per minute, glucose 159, calcium was 8. ASSESSMENT: 1. Healthcare-associated pneumonia, for which he continues to be on IV Zosyn. 2. Acute on chronic kidney injury. 3. Acute blood loss anemia for which he did receive 1 unit of packed RBCs. 4. Polymicrobial urinary tract infection, indicating contamination versus colonization. 5. Benign prostatic hypertrophy with bladder outlet obstruction. 6. Bladder cancer. 7. Hypertension. 8. Type 2 diabetes mellitus. 9. Hypothyroidism. 10. History of brain tumor. 11. Bilateral hydronephrosis. PLAN: My plan is to continue with IV Zosyn. Continue to monitor his H and H and transfuse him as needed as he continued to have hematuria. I will repeat his H and H again tomorrow and if it is 7 or less than 7, we will transfuse him 1 unit and hopefully discharge him back to [facility] on Wednesday. ROOPA DR: Flor TID: [id number]
[2022-01-11] MEDS: PIPERACILLIN/TAZOBACTAM 3.375 GM in IV NORMAL SALINE 50ML 50 ML IV SCH ×4 (04:26→21:14)
[2022-01-11 05:00] VITALS: BP 130/68
[2022-01-11] MEDS: LEVOTHYROXINE 88 MCG TABLET PO SCH (05:12)
[2022-01-11] MEDS: IPRATRPIUM/ALBUTEROL 0.5/2.5MG 3 ML NEBU. NEB SCH ×4 (05:18→21:15)
[2022-01-11] MEDS: VITAMIN B COMPLEX CAPSULE. PO SCH (09:04)
[2022-01-11] MEDS: ASCORBIC ACID 500 MG TABLET PO SCH ×2 (09:04→21:15)
[2022-01-11] MEDS: FERROUS SULFATE 325 MG TABLET. PO SCH ×2 (09:04→21:15)
[2022-01-11] MEDS: busPIRone 5 MG TABLET. PO SCH ×2 (09:04→21:15)
[2022-01-11] MEDS: IV DEXTROSE 5 %-0.2 % NACL 1,000 ML IV SCH ×2 (09:04→21:35)
[2022-01-11] MEDS: LACTOBACILLUS RHAMNOSUS GG 1 CAPSULE. PO SCH ×2 (09:04→21:15)
[2022-01-11] MEDS: SERTRALINE 25 MG TABLET. PO SCH (09:05)
[2022-01-11 11:18] VITALS: BP 130/63
[2022-01-11 15:47] VITALS: BP 136/66
[2022-01-11 19:31] VITALS: BP 151/72
--- NOTE | 2022-01-11 22:46 | PN ---
DATE: 01/11/2022 SUBJECTIVE: The patient is resting, slightly propped up in bed, in no apparent distress. He is awake, alert. On questioning him, he denied any complaint. Nursing staff stated that his urine has somewhat clear today. He has no gross hematuria. His hemoglobin drifting down, today at 7.4. His left lower extremity was more swollen than the right and his ultrasound showed nonocclusive DVT in the left common femoral and popliteal veins. I attempted to talk to his daughter multiple times but the nurses stated that this is restricted and not available. The patient obviously is high risk for bleeding as he continued to have probably bladder cancer and he comes here very often with hematuria and acute blood loss anemia and has had multiple blood transfusions before. He now has a deep vein thrombosis and obviously anticoagulation will cause more bleeding and he probably will need an IVC filter and/or obviously if the family does not want to do any aggressive, to consider hospice care. Unfortunately, I was unable to contact his daughter. PHYSICAL EXAMINATION: GENERAL: When I examined him this morning, he was pale, no jaundice, no cyanosis, no lymphadenopathy, no thyromegaly, no jugular venous distention. He has bilateral lower limb edema, more so on the right than left. VITAL SIGNS: Her heart rate was 70, blood pressure is 130/63, temperature was 98.2, respiratory rate was 16 and oxygen saturation was 95% on room air. HEAD, EYES, EARS, NOSE, AND THROAT: Normocephalic, atraumatic. NECK: Supple. HEART: Showed normal first and second heart sounds. No gallop, rub or murmur. CHEST: Showed bilateral basal crepitation. I could not appreciate any rhonchi. ABDOMEN: Scaphoid, soft, nontender. NEUROLOGIC: He is awake, alert, responding appropriately. All cranial nerves intact. He moves upper extremities without difficulty, is mostly bedbound. He has an indwelling Thurston catheter. His intake was 4300, output was 2900. LABORATORY DATA: As of this morning, his hemoglobin is down to 7.4. His chemistry showed a serum sodium 141, potassium 3.7, chloride 107, bicarbonate 24, anion gap of 10, BUN 23, creatinine 1.8. Estimated GFR was 44 mL per minute. His glucose 159, calcium was 8. ASSESSMENT: 1. Healthcare-associated pneumonia, for which he continues to be on IV Zosyn. 2. Acute on chronic kidney injury, stable. 3. Acute blood loss anemia, did receive 1 unit of packed RBCs. His hemoglobin is drifting down. 4. Polymicrobial urinary tract infection, indicating contamination versus colonization. 5. Benign prostatic hypertrophy with bladder outlet obstruction requiring indwelling Thurston catheter. 6. Bladder cancer with bilateral hydronephrosis. 7. Hypertension. 8. Type 2 diabetes mellitus. 9. Hypothyroidism. 10. History of brain tumor. PLAN: My plan is to continue with IV Zosyn for today and tomorrow and switch him to oral Augmentin. I will attempt again tomorrow to contact his daughter, otherwise, he will be discharged back to [place] and an IVC filter can be placed as an outpatient if the family can be contacted and desiring this treatment. ROOPA DR: Flor TID: [id number]
[2022-01-12 00:01] VITALS: BP 138/56
[2022-01-12] MEDS: IV DEXTROSE 5 %-0.2 % NACL 1,000 ML IV SCH (02:00)
[2022-01-12] MEDS: PIPERACILLIN/TAZOBACTAM 3.375 GM in IV NORMAL SALINE 50ML 50 ML IV SCH ×2 (03:04→08:31)
[2022-01-12] MEDS: IPRATRPIUM/ALBUTEROL 0.5/2.5MG 3 ML NEBU. NEB SCH (04:49)
[2022-01-12 05:01] VITALS: BP 117/62
[2022-01-12] MEDS: LEVOTHYROXINE 88 MCG TABLET PO SCH (06:10)
[2022-01-12 07:31] LABS: ALBUMIN 1.6 g/dL (3.4-5.0); ALBUMIN/GLOBULIN RATIO 0.4 (1.0-1.7); CALCIUM 8.2 mg/dL (8.5-10.1); GFR 39.4; POTASSIUM 3.9 mmol/L (3.5-5.1); TOTAL BILIRUBIN 0.3 mg/dL (0.2-1.0); TOTAL PROTEIN 5.2 g/dL (6.4-8.2)
[2022-01-12] MEDS: FERROUS SULFATE 325 MG TABLET. PO SCH (08:31)
[2022-01-12] MEDS: busPIRone 5 MG TABLET. PO SCH (08:31)
[2022-01-12] MEDS: ASCORBIC ACID 500 MG TABLET PO SCH (08:31)
[2022-01-12] MEDS: SERTRALINE 25 MG TABLET. PO SCH (08:31)
[2022-01-12] MEDS: LACTOBACILLUS RHAMNOSUS GG 1 CAPSULE. PO SCH (08:31)
[2022-01-12] MEDS: VITAMIN B COMPLEX CAPSULE. PO SCH (09:00)
[2022-01-12 09:44] LABS: HEMATOCRIT 25.3 % (39.0-53.0); HEMOGLOBIN 7.7 g/dL (13.0-17.5); RED BLOOD COUNT 3.29 x10^6/uL (4.30-5.70); RED CELL DISTRIBUTION WIDTH 21.6 % (11.5-14.5); WHITE BLOOD COUNT 12.6 x10^3/uL (4.0-11.0)
[2022-01-12 10:54] VITALS: BP 136/71
[2022-01-12 14:39] VITALS: BP 151/69
--- NOTE | 2022-01-12 20:25 | DS ---
DATE OF DISCHARGE: 01/12/2022 DISCHARGE/TRANSFER SUMMARY HOSPITAL COURSE: The patient is a 76-year-old -[place]izen [place] male patient, a resident at [facility], who was admitted originally for healthcare-associated pneumonia with increasing confusion and altered mental status. He was found to have pneumonia for which he was started on vancomycin and Zosyn. His blood cultures were negative, so we continued with Zosyn. His urine showed 3 or more organisms isolated results consistent with colonization or contamination. The patient continued to have gross hematuria and his H and H has dropped down to 6.5 and did receive 1 unit of packed RBCs. His right lower extremity was noted to be markedly swollen compared to the left and he underwent venous Doppler ultrasound, which showed that the patient has nonocclusive thrombus in the common femoral vein, femoral vein and popliteal vein. Visualized veins appear patent on limited evaluation. Given that he has bladder cancer with recurrent episodes of gross hematuria and blood loss anemia, decision was made to transfer him to [facility] for placement of an IVC filter. I did make an appointment for him to be seen by the oncologist for his bladder cancer and apparently he missed his appointment for now twice. PHYSICAL EXAMINATION: GENERAL: When I examined him this afternoon, he looked pale, but no jaundice, cyanosis or thyromegaly. No jugular venous distention. No limb edema. VITAL SIGNS: Her heart rate was 66, blood pressure is 136/71, temperature 96.7, respiratory rate was 16 and oxygen saturation was 97%. HEAD, EYES, EARS, NOSE, AND THROAT: Showed he is normocephalic, atraumatic. NECK: Supple. HEART: Showed normal first and second heart sounds. No gallop, rub or murmur. CHEST: Clear to auscultation. No crepitation or rhonchi. ABDOMEN: Distended, soft, nontender. NEUROLOGIC: He is awake, alert, responding appropriately. All his cranial nerves are intact. He moves his upper extremities without difficulty. He is mostly bedbound, wheelchair bound. He has an indwelling Thurston catheter. His right leg is definitely more swollen than the left leg. His intake over the last 24 hours was 2785, output was 3575. LABORATORY DATA: As of this morning, his white cell count was 12.6, hemoglobin 7.7, hematocrit 25, MCV 77 and platelet count 307,000. His serum sodium was 144, potassium 3.9, chloride 108, bicarbonate 27, anion gap of 9, BUN 23, creatinine 2. Estimated GFR was 39 mL per minute. His glucose 146, calcium was 8.1. Total bilirubin, AST, ALT, alkaline phosphatase were normal. Total protein 5.2, albumin was 1.6. DISCHARGE MEDICATIONS: The patient was transferred to [facility] to continue with vitamin B complex 1 tablet once a day, sertraline 12.5 mg once a day, ascorbic acid 500 mg twice a day, ferrous sulfate 325 mg twice a day, vitamin, albuterol, Atrovent 3 mL by nebulizer 4 times a day, ondansetron 4 mg every 6 hours as needed, Tylenol 650 mg every 4 hours, levothyroxine 88 mcg once a day, buspirone 5 mg twice a day, Lactobacillus 1 capsule twice a day. I discontinued his piperacillin/tazobactam and switched him to Augmentin 500/125 one tablet twice a day for 4 more days. FINAL DISCHARGE DIAGNOSES: 1. Healthcare-associated pneumonia. 2. Blood loss anemia requiring blood transfusion. 3. Acute on chronic kidney injury. 4. Bladder cancer. 5. Benign prostatic hypertrophy with bladder outlet obstruction requiring indwelling Thurston catheter. 6. Type 2 diabetes mellitus. 7. Hypertension. 8. Right lower extremity DVT. PARI DR: Flor TID: [id number]
== END 2022-01-12 15:28 | disposition short-term general hospital (02) | DRG 177 ==
LOC: ER 21:11 → ER HOLD 23:11 → 1 SOUTH 23:57
PROVIDERS: ADMIT Hospitalist; ATTEND Hospitalist
DX: J15.6 Pneumonia due to other Gram-negative bacteria (principal); R65.11 Systemic inflammatory response syndrome (SIRS) of non-infectious origin with acute organ dysfunction; G93.41 Metabolic encephalopathy; N39.0 Urinary tract infection, site not specified; D62 Acute posthemorrhagic anemia; I82.401 Acute embolism and thrombosis of unspecified deep veins of right lower extremity; N18.4 Chronic kidney disease, stage 4 (severe); N17.9 Acute kidney failure, unspecified; N13.6 Pyonephrosis; N13.8 Other obstructive and reflux uropathy; J15.9 Unspecified bacterial pneumonia; C67.9 Malignant neoplasm of bladder, unspecified; E03.9 Hypothyroidism, unspecified; E11.22 Type 2 diabetes mellitus with diabetic chronic kidney disease; F02.80 Dementia in other diseases classified elsewhere, unspecified severity, without behavioral disturbance, psychotic disturbance, mood disturbance, and anxiety; G30.9 Alzheimer's disease, unspecified; F32.A Depression, unspecified; F41.9 Anxiety disorder, unspecified; N32.0 Bladder-neck obstruction; I12.9 Hypertensive chronic kidney disease with stage 1 through stage 4 chronic kidney disease, or unspecified chronic kidney disease; N40.1 Benign prostatic hyperplasia with lower urinary tract symptoms; R31.0 Gross hematuria; Y95 Nosocomial condition; Z66 Do not resuscitate; Z85.51 Personal history of malignant neoplasm of bladder; Z86.011 Personal history of benign neoplasm of the brain; Z87.891 Personal history of nicotine dependence; Z88.8 Allergy status to other drugs, medicaments and biological substances
CPT/HCPCS: 36415; 36430; 71045; 80048; 80053; 80202; 81001; 82728; 83540; 83550; 83605; 83880; 84484; 85007; 85018; 85025; 85027; 86850; 86900; 86901; 86920; 87040; 87086; 87428; 93005; 93971; 94640; 94760; 96365; 96368; J2543; J3370; J7040; J7050; P9016; U0003; 99285-25; J7030